=== PATIENT | female | born 1950 | race African-American/Black ===

== ENCOUNTER 2018-09-01 06:49 | Outpatient (CLI) | payer OTHER ==
[~2018-09-01] VITALS: Ht 167.6 cm; Wt 88.5 kg
[2018-09-01] VITALS (10 sets, daily range): BP systolic 119–172; BP diastolic 60–90
[~2018-09-01 06:49] MED LIST: AMLO10TA4 PO; AMLO10TA8 PO; ASPI-630 PO; ASPI81TA50 PO; CARV25TA2 PO; FURO40TA4 PO; GABA300C18 PO; GLIP5POW MC; GLIP5TAB22 PO; INSU100V13 SQ; LATA2.5D3 EACHEYE; NAPR220C4 PO; OMEP40CA5 PO
[2018-09-01 07:51] LABS: BASO % 1 % (0-3); EOS # 0.3 x10^3/uL (0.0-0.7); EOS % 5 % (0-3); HEMATOCRIT 33.8 % (36.0-47.0); HEMOGLOBIN 11.2 g/dL (12.0-15.5); LYMPH # 1.7 x10^3/uL (1.0-4.8); LYMPH % 29 % (24-48); MEAN CORPUSCULAR HEMOGLOBIN 28 pg (25-35); MEAN CORPUSCULAR HGB CONC 33 g/dL (31-37); MEAN CORPUSCULAR VOLUME 86 fL (79-100); MONO # 0.4 x10^3/uL (0.0-1.1); MONO % 7 % (0-9); NEUT # 3.5 x10^3uL (1.8-7.7); NEUT % 59 % (31-73); PLATELET COUNT 119 x10^3/uL (140-400); RED BLOOD COUNT 3.95 x10^6/uL (3.50-5.40); RED CELL DISTRIBUTION WIDTH 13.6 % (11.5-14.5); WHITE BLOOD COUNT 5.9 x10^3/uL (4.0-11.0)
[2018-09-01] MEDS ORDERED: CHOL4POW PO (08:00)
[2018-09-01] MEDS ORDERED: fentaNYL PF VIAL 100 MCG/2 ML VIAL ONE (08:00)
[2018-09-01] MEDS ORDERED: NALOXONE 0.4 MG/ML VIAL. ONE (08:00)
[2018-09-01] MEDS ORDERED: FLUMAZENIL 0.5 MG/5 ML VIAL. IV ONE (08:00)
[2018-09-01] MEDS ORDERED: MIDAZOLAM HCL/PF 2 MG/2 ML VIAL. ONE (08:00)
[2018-09-01] MEDS ORDERED: LIDOCAINE WITH 8.4% SOD BICARB 3 ML DISP.SYRIN. ONE (08:15)
[2018-09-01] MEDS ORDERED: LIDOCAINE WITH 8.4% SOD BICARB 3 ML DISP.SYRIN. IJ ONE (08:30)
[2018-09-01] MEDS ORDERED: fentaNYL PF VIAL 100 MCG/2 ML VIAL IV ONE (08:30)
[2018-09-01] MEDS ORDERED: MIDAZOLAM HCL/PF 2 MG/2 ML VIAL. IV ONE (08:30)
--- NOTE | 2018-09-01 10:57 | NUR ---
Discharge Note: RONALDO GARCIA Discharge instructions and discharge home medications reviewed with Patient and a copy given. All questions have been answered and understanding verbalized. Patient ate breakfast, tolerated well with no issues. The following instructions and handouts were given: Moderate sedation and bone marrow biopsy. Discontinued lines and drains: PIV left forearm, dressing clean dry intact. Patient discharged to home with daughter via in wheelchair to private vehicle.
--- NOTE | 2018-09-01 12:48 | RAD ---
CT-guided bone marrow biopsy. 09/01/2018 12:45 PM Indication: THROMBOCYTOPENIA Discussion: The risks and benefits of the procedure, including but not limited to, bleeding and infection were discussed patient. Informed consent was obtained. The patient was brought to the CT scanner and placed in the prone position. A timeout procedure was performed. 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 The overlying soft tissues were prepped and draped using maximum sterile barrier technique. 1% lidocaine without epinephrine was administered for local anesthesia. Under intermittent CT guidance, an OncControl needle was advanced into the bone marrow of the left iliac crest. 2 Aspirates and 1 core biopsy samples were obtained. Samples were delivered to pathology was present at the time of procedure. The needle was removed and manual pressure held to achieve hemostasis. No immediate complications were identified. The procedure was performed under conscious sedation including continuous cardiopulmonary monitoring via dedicated sedation nurse. Sedation time: 20 minutes Impression: Successful CT-guided bone marrow biopsy of the left iliac crest . PQRS Compliance Statement: One or more of the following individualized dose reduction techniques were utilized for this examination: 1. Automated exposure control 2. Adjustment of the mA and/or kV according to patient size 3. Use of iterative reconstruction technique
--- NOTE | 2018-09-10 18:05 | PATHOLOGY ---
[facility] Accession Number: [id number] . 01 Material submitted: . PART A: bone - BONE MARROW BIOPSY PART B: bone - BONE MARROW CLOT PART C: bone - BONE MARROW ASPIRATE SLIDES PART D: bone - PERIPHERAL BLOOD SMEAR PART E: bone - BONE MARROW FLOW . 01 Clinical history: . Pancytopenia . 02 Diagnosis: Peripheral smear: - Normocytic normochromic anemia, mild. - Thrombocytopenia, mild. . Bone marrow, aspirate smears, clot section, and core biopsy: - Normocellular to focally mildly hypercellular marrow showing trilineage hematopoiesis, mild erythroid hyperplasia, no significant dyspoiesis, and mild polyclonal plasmacytosis. - Mildly increased reticuloendothelial iron stores. (JPM:[facility] 09/10/2018) [facility]/09/10/2018 . 02 Comment: The peripheral smear shows mild normocytic normochromic anemia and mild thrombocytopenia. The bone marrow is normocellular to focally mildly hypercellular and shows trilineage hematopoiesis, mild erythroid hyperplasia, no significant dyspoiesis, mildly increased reticulo- endothelial iron stores and a mild polyclonal plasmacytosis. Flow cytometric analysis shows no immunophenotypic evidence of a lymphoproliferative disorder, acute leukemia, increase in blasts or plasma cell neoplasm. Cytogenetic analysis shows a normal female karyotype. The etiology of the cytopenias is not readily evident from the bone marrow examination. With a past medical history of treated hepatitis C, would consider liver disease and hypersplenism. Please correlate with clinical, laboratory and radiologic findings. (JPM:[facility] 09/10/2018) . Special stains performed: Iron stain on B1 and C1, reticulin stain on A1, immunoperoxidase for CD138 on A1 and B1, in situ hybridization for kappa and lambda light chain on A1 and in situ hybridization for kappa and lambda light chain on B1. . 02 Electronically signed: . Maciel Leslie MD, Pathologist NPI- [id number] . 01 Gross description: . A. Received in formalin labeled "Se Jeffrey BM BX," is a single needle core of razo bone measuring 2.1 cm in length and 0.3 cm in diameter. The specimen is submitted entirely in cassette A1, following decalcification. . B. Received in formalin labeled "Se Jeffrey BM Asp clot," is an aggregate of dark razo blood clot measuring 1.1 x 0.5 x 0.2 cm. The specimen is filtered and entirely submitted in cassette B1. ([facility]; 09/01/2018) TOB/TOB . 02 Microscopic: . Laboratory Data: The CBC results are dated 09/01/18. The WBC count is 5.9 K/CMM, and the automated WBC differential reveals 59% neutrophils, 29% lymphs, 7% monos, 5% eos, and 1% baso. The RBC count is 3.95 M/CMM, hemoglobin 11.2 G/DL, hematocrit 33.8%, MCV 86 FL, MCH 28 PG, MCHC 33 G/DL, and the RDW is 13.6%. The platelet count is 119 K/CMM. . Additional laboratory results are obtained from Dr. Qureshi' office. Serum protein electrophoresis shows no monoclonal spike. The serum folate is 15.5 NG/ML. Serum immunofixation shows no monoclonal proteins. The serum iron is 67 UG/DL, TIBC 308 UG/DL, saturation 22%, and ferritin 162 NG/ML. The methylmalonic acid is 182 NMOL/L. The vitamin B12 is is 448 PG/ML. . Peripheral Smear: The peripheral smear is reviewed. The WBC count is normal. The WBC differential reveals a predominance of segmented neutrophils, with a smaller population of lymphocytes and several monocytes and eosinophils noted. Neutrophils do not show dysplastic changes. There is no significant neutrophilic left shift. There are no circulating blasts. There is no leukoerythroblastic reaction. The lymphocyte population consists predominantly of small lymphocytes. Red blood cells predominantly appear normochromic and normocytic. Red blood cells show no significant anisopoikilocytosis. Platelets are mildly decreased and appear normal in morphology. . Aspirate Smears: Two Falcon's-stained and one iron-stained aspirate smears are examined. The smears contain multiple marrow particle. Overall, there appears to be a relative erythroid hyperplasia. The M/E ratio is approximately 1:1. Erythroid maturation predominantly appears normoblastic. There are no megaloblastic or overt dysplastic changes. Granulopoiesis qualitatively appears normal. There is no significant left shift or dysplastic changes. There is no increase of blasts. Megakaryocytes appear adequate in number and are of variable ploidy. There are foci of mild plasmacytosis showing between 5% and 10% plasma cells. Other areas have a smaller proportion of plasma cells. The plasma cells have a relatively mature appearance. Some appear enlarged and reactive. There are scattered admixed small lymphocytes with no significant increase of lymphocytes noted. There are no cells foreign to the marrow. The iron stain shows increased iron stores. No ringed sideroblasts are identified. . Bone Marrow Biopsy and Clot Section: Sections of the bone marrow biopsy reveal a segment of bone marrow showing focal aspiration artifact. The biopsy ranges between 20% and 40-50% cellular. The clot sections contain multiple marrow particles which range between 30% and 50% cellular. There is trilineage hematopoiesis with a mild erythroid hyperplasia. There are admixed granulocytic precursors present in varying stages of maturation. There is no apparent increase of blasts. Megakaryocytes appear adequate in number and are of variable ploidy. There are scattered admixed plasma cells which focally appear mildly increased. There are no solid nodules or areas of sheet-like replacement by plasma cells. The plasma cells have a relatively mature appearance. There are no abnormal lymphoid aggregates, granulomas, or cells foreign to the marrow. To confirm flow cytometric findings and characterize the target cells in a tissue architectural context, immunohistochemical stains for CD138 and in situ hybridization for kappa and lambda light chain are obtained on the biopsy and clot section and yield the following results: . CD138 (A1): Plasma cells positive scattered throughout the marrow and focally aligned along blood vessels; plasma cells comprise between 5% and 15% of nucleated marrow cells. Thorp and lambda АНДРЕЙ (A1): Plasma cells appear polyclonal. CD138 (B1): Plasma cells positive scattered throughout the marrow and focally aligned along blood vessels; plasma cells comprise between 5% and 15% of nucleated marrow cells. Thorp and lambda АНДРЕЙ (B1): Plasma cells appear polyclonal. . A reticulin stain obtained on the bone marrow biopsy shows no significant reticulin fibrosis. An iron stain obtained on the clot section shows focal mildly increased reticuloendothelial iron stores. No ringed sideroblasts are identified. . Special Studies: Bone marrow submitted for flow cytometric analysis has a viability of 99.8%. Granulocytes comprise 46.0% of total cells and show phenotypic evidence of maturation. Monocytes comprise 1.2% of total cells and show phenotypic evidence of maturation. CD45 dim, CD34 positive cells comprise 0.6% of total cells. Plasma cells comprise 0.1% of total cells and show unremarkable surface marker expression. Lymphocytes comprise 34.2% of total cells. T-cells comprise 93% of lymphoid cells and show a CD4/CD8 ratio of 1.9. NK-cells comprise 2% of lymphoid cells. Mature B-cells comprise 4% of lymphoid cells and are polyclonal with a kappa:lambda ratio of 1.4. CD45 negative cells comprise 15.5% of total cells and are comprised of erythroids and cell debris, with a small fraction of comingled myeloid, monocytic and lymphoid elements. . Bone marrow submitted for cytogenetic analysis shows a normal female karyotype in all cells analyzed. . (JPM:[facility]; 09/09/2018) . 02 Pathologist provided ICD-10: D64.9, D69.6, D75.89 . 02 CPT . 876218, 797265, 847038, 436946, 515013, 966517, 747978, 246122, M64436, V29835, D13881 Specimen Comment: A courtesy copy of this report has been sent to Specimen Comment: [phone], , . Specimen Comment: Report sent to ,DR LOW / DR WORRELL Performed at: 01 [facility] [address], [place] [id number] MD Kenny Ng MD Phone: [phone] Performed at: 02 [facility] [address], [place] [id number] MD Maciel Leslie MD Phone: [phone]
== END 2018-09-01 10:45 | disposition home or self-care (01) ==
LOC: INTRAD 06:49
PROVIDERS: ATTEND Internal Medicine Hematology & Oncology
DX: D69.6 Thrombocytopenia, unspecified (principal); D64.9 Anemia, unspecified
CPT/HCPCS: 36415; 38222; 77012; 85025; 85610; 88184; 88185; 88237; 88305; 88311; 88313; 88342; 88364; 88365; 99152; J2250; J3010

== ENCOUNTER 2019-01-03 18:40 | Inpatient (IN) | payer OTHER ==
[~2019-01-03] VITALS: Ht 170.2 cm; Wt 87.2 kg
[~2019-01-03 18:40] MED LIST changes: +CHOL4POW PO
[2019-01-03] MEDS ORDERED: IV NORMAL SALINE 1000ML BAG 1,000 ML IV ONE (19:00)
[2019-01-03 19:03] LABS: BASO # 0.1 x10^3/uL (0.0-0.2); BASO % 1 % (0-3); EOS # 0.2 x10^3/uL (0.0-0.7); EOS % 4 % (0-3); HEMATOCRIT 31.4 % (36.0-47.0); HEMOGLOBIN 10.6 g/dL (12.0-15.5); LYMPH # 1.5 x10^3/uL (1.0-4.8); LYMPH % 26 % (24-48); MEAN CORPUSCULAR HEMOGLOBIN 28 pg (25-35); MEAN CORPUSCULAR HGB CONC 34 g/dL (31-37); MEAN CORPUSCULAR VOLUME 85 fL (79-100); MONO # 0.5 x10^3/uL (0.0-1.1); MONO % 9 % (0-9); NEUT # 3.5 x10^3/uL (1.8-7.7); NEUT % 60 % (31-73); PLATELET COUNT 112 x10^3/uL (140-400); RED BLOOD COUNT 3.72 x10^6/uL (3.50-5.40); RED CELL DISTRIBUTION WIDTH 14.3 % (11.5-14.5); WHITE BLOOD COUNT 5.8 x10^3/uL (4.0-11.0)
[2019-01-03 19:13] LABS: PROTHROMBIN TIME PATIENT 13.6 SEC (11.7-14.0)
[2019-01-03 19:14] LABS: CALCIUM 9.2 mg/dL (8.5-10.1); CREATININE 1.3 mg/dL (0.6-1.0); GFR 49.1; POTASSIUM 3.6 mmol/L (3.5-5.1)
[2019-01-03 19:28] LABS: ALBUMIN 3.5 g/dL (3.4-5.0); ALBUMIN/GLOBULIN RATIO 0.7 (1.0-1.7); MAGNESIUM 2.2 mg/dL (1.8-2.4); TOTAL BILIRUBIN 0.3 mg/dL (0.2-1.0); TOTAL PROTEIN 8.2 g/dL (6.4-8.2)
--- NOTE | 2019-01-03 19:40 | RAD ---
Exam: CT head and cervical spine without contrast INDICATION: Altered mental status TECHNIQUE: Sequential axial images through the head and cervical spine were obtained without the administration of IV contrast. Comparisons: None FINDINGS: Head: No focal parenchymal lesion or hemorrhage is identified. There is no midline shift or sulcal effacement. No acute vascular territory infarction is identified. Valenzuela-white distinction is preserved. The ventricular system is within normal limits without compression hydrocephalus. The basal cisterns are well maintained. The visualized portions of the paranasal sinuses and mastoid air cells are well-pneumatized. No acute fractures. Cervical spine: Vertebral body heights are well-maintained. Straightening of the cervical spine which may be positional. Fracture through the cervical spine is not identified. Multilevel degenerative change at the cervical spine with degenerative disc disease greatest at C5-C6. Visualized paraspinal soft tissues are unremarkable. IMPRESSION: 1. No acute intracranial abnormality. 2. Negative CT C-spine for acute traumatic injury. Exposure: One or more of the following in the visualized dose reduction techniques were utilized for this examination: 1. Automated exposure control 2. Adjustment of the MA and/or KV according to patient size Use of iterative of reconstructive technique Electronically signed by: Dean Lindsey MD (01/03/2019 7:37 PM) [facility]
--- NOTE | 2019-01-03 20:26 | PHYS DOC ---
Past Medical History Past Medical History: CHF, Diabetes-Type II, Hypertension Past Surgical History: Cholecystectomy Alcohol Use: None Drug Use: None Adult General Chief Complaint Chief Complaint: ALTERED MENTAL STATUS HPI HPI Patient is a 68 year old [f__sex] who presents with [] Review of Systems Review of Systems Constitutional: Denies fever or chills [] Eyes: Denies change in visual acuity, redness, or eye pain [] HENT: Denies nasal congestion or sore throat [] Respiratory: Denies cough or shortness of breath [] Cardiovascular: No additional information not addressed in HPI [] GI: Denies abdominal pain, nausea, vomiting, bloody stools or diarrhea [] : Denies dysuria or hematuria [] Musculoskeletal: Denies back pain or joint pain [] Integument: Denies rash or skin lesions [] Neurologic: Denies headache, focal weakness or sensory changes [] Endocrine: Denies polyuria or polydipsia [] All other systems were reviewed and found to be within normal limits, except as documented in this note. Current Medications Current Medications Current Medications Medications (Trade) Dose Ordered Sig/Reginaldo Start Time Stop Time Status Last Admin Dose Admin Sodium Chloride 1,000 ml @ 1,000 mls/hr 1X ONCE 01/03/19 19:00 01/03/19 19:59 DC 01/03/19 20:09 1,000 MLS/HR Allergies Allergies Allergies Coded Allergies Type Severity Reaction Last Updated Verified No Known Drug Allergies 03/14/15 No Physical Exam Physical Exam Constitutional: Well developed, well nourished, no acute distress, non-toxic appearance. [] HENT: Normocephalic, atraumatic, bilateral external ears normal, oropharynx moist, no oral exudates, nose normal. [] Eyes: PERRLA, EOMI, conjunctiva normal, no discharge. [] Neck: Normal range of motion, no tenderness, supple, no stridor. [] Cardiovascular:Heart rate regular rhythm, no murmur [] Lungs & Thorax: Bilateral breath sounds clear to auscultation [] Abdomen: Bowel sounds normal, soft, no tenderness, no masses, no pulsatile masses. [] Skin: Warm, dry, no erythema, no rash. [] Back: No tenderness, no CVA tenderness. [] Extremities: No tenderness, no cyanosis, no clubbing, ROM intact, no edema. [] Neurologic: Alert and oriented X 3, normal motor function, normal sensory function, no focal deficits noted. [] Psychologic: Affect normal, judgement normal, mood normal. [] Current Patient Data Vital Signs Vital Signs Date Time Temp Pulse Resp B/P (MAP) Pulse Ox O2 Delivery O2 Flow Rate FiO2 01/03/19 18:40 93.3 64 12 172/84 (113) 100 Room Air 93.3 Lab Values Laboratory Tests Test 01/03/19 18:51 01/03/19 19:50 White Blood Count 5.8 x10^3/uL (4.0-11.0) Red Blood Count 3.72 x10^6/uL (3.50-5.40) Hemoglobin 10.6 g/dL (12.0-15.5) L Hematocrit 31.4 % (36.0-47.0) L Mean Corpuscular Volume 85 fL (79-100) Mean Corpuscular Hemoglobin 28 pg (25-35) Mean Corpuscular Hemoglobin Concent 34 g/dL (31-37) Red Cell Distribution Width 14.3 % (11.5-14.5) Platelet Count 112 x10^3/uL (140-400) L Neutrophils (%) (Auto) 60 % (31-73) Lymphocytes (%) (Auto) 26 % (24-48) Monocytes (%) (Auto) 9 % (0-9) Eosinophils (%) (Auto) 4 % (0-3) H Basophils (%) (Auto) 1 % (0-3) Neutrophils # (Auto) 3.5 x10^3/uL (1.8-7.7) Lymphocytes # (Auto) 1.5 x10^3/uL (1.0-4.8) Monocytes # (Auto) 0.5 x10^3/uL (0.0-1.1) Eosinophils # (Auto) 0.2 x10^3/uL (0.0-0.7) Basophils # (Auto) 0.1 x10^3/uL (0.0-0.2) Prothrombin Time 13.6 SEC (11.7-14.0) Prothrombin Time INR 1.1 (0.8-1.1) Activated Partial Thromboplast Time 27 SEC (24-38) Sodium Level 143 mmol/L (136-145) Potassium Level 3.6 mmol/L (3.5-5.1) Chloride Level 107 mmol/L (98-107) Carbon Dioxide Level 24 mmol/L (21-32) Anion Gap 12 (6-14) Blood Urea Nitrogen 38 mg/dL (7-20) H Creatinine 1.3 mg/dL (0.6-1.0) H Estimated GFR (Cockcroft-Gault) 49.1 BUN/Creatinine Ratio 29 (6-20) H Glucose Level 101 mg/dL (70-99) H Lactic Acid Level 0.6 mmol/L (0.4-2.0) Calcium Level 9.2 mg/dL (8.5-10.1) Magnesium Level 2.2 mg/dL (1.8-2.4) Total Bilirubin 0.3 mg/dL (0.2-1.0) Aspartate Amino Transferase (AST) 21 U/L (15-37) Alanine Aminotransferase (ALT) 12 U/L (14-59) L Alkaline Phosphatase 98 U/L (46-116) Creatine Kinase 121 U/L (26-192) Creatine Kinase MB (Mass) 1.0 ng/mL (0.0-3.6) Creatine Kinase MB Relative Index 0.8 % (0-4) Troponin I Quantitative < 0.017 ng/mL (0.000-0.055) OH-Xmk-Q-Type Natriuretic Peptide 122 pg/mL (0-124) Total Protein 8.2 g/dL (6.4-8.2) Albumin 3.5 g/dL (3.4-5.0) Albumin/Globulin Ratio 0.7 (1.0-1.7) L Ammonia 15 mcmol/L (11-34) Laboratory Tests 01/03/19 18:51 Laboratory Tests 01/03/19 18:51 EKG EKG @1841 NSR at 62bpm, NO ST elevation, QRS 134ms, QT/QTc 462/471ms Radiology/Procedures Radiology/Procedures PROCEDURE: CT HEAD AND CERVICAL SPINE WO Exam: CT head and cervical spine without contrast INDICATION: Altered mental status TECHNIQUE: Sequential axial images through the head and cervical spine were obtained without the administration of IV contrast. Comparisons: None FINDINGS: Head: No focal parenchymal lesion or hemorrhage is identified. There is no midline shift or sulcal effacement. No acute vascular territory infarction is identified. Valenzuela-white distinction is preserved. The ventricular system is within normal limits without compression hydrocephalus. The basal cisterns are well maintained. The visualized portions of the paranasal sinuses and mastoid air cells are well-pneumatized. No acute fractures. Cervical spine: Vertebral body heights are well-maintained. Straightening of the cervical spine which may be positional. Fracture through the cervical spine is not identified. Multilevel degenerative change at the cervical spine with degenerative disc disease greatest at C5-C6. Visualized paraspinal soft tissues are unremarkable. IMPRESSION: 1. No acute intracranial abnormality. 2. Negative CT C-spine for acute traumatic injury. Exposure: One or more of the following in the visualized dose reduction techniques were utilized for this examination: 1. Automated exposure control 2. Adjustment of the MA and/or KV according to patient size Use of iterative of reconstructive technique Electronically signed by: Dean Lindsey MD (01/03/2019 7:37 PM) [facility] [place] Course & Med Decision Making Course & Med Decision Making Pertinent Labs and Imaging studies reviewed. (See chart for details) [] Dragon Disclaimer Dragon Disclaimer This electronic medical record was generated, in whole or in part, using a voice recognition dictation system. Departure Departure Impression: Primary Impression: Acute renal insufficiency Additional Impressions: Hypoglycemia Hypothermia Disposition: ADMITTED INPATIENT Admitting Physician: HIMKhoi Condition: STABLE Referrals: DEVONTE WORRELL MD (PCP) Problem Qualifiers Additional Impressions: Hypothermia Encounter type: initial encounter Qualified Codes: T68.XXXA - Hypothermia, initial encounter REECE DELACRUZ DO Jan 03, 2019 20:26
[2019-01-03] MEDS ORDERED: DEXTROSE 50% 25 GM / 50ML DISP.SYRIN. IV ONE ×2 (20:32→20:45)
[2019-01-03] MEDS ORDERED: DEXTROSE 50% 25 GM / 50ML DISP.SYRIN. IV PRN (21:15)
[2019-01-03] MEDS ORDERED: ONDANSETRON PF 4 MG/2 ML VIAL. IV PRN (21:15)
[2019-01-03] MEDS ORDERED: IV DEXTROSE 5% 250 ML BAG. IV PRN (21:15)
[2019-01-03] MEDS ORDERED: IV DEXTROSE 5 %-0.45 % NACL 1,000 ML IV ONE (21:15)
--- NOTE | 2019-01-03 21:42 | RAD ---
AP portable chest radiograph 01/03/2019 Clinical History: History of shortness of breath. Altered mental status. An AP erect portable digital radiograph of the chest was obtained. Comparison study is dated 05/06/2017. The cardiac silhouette is mildly enlarged. The thoracic aorta is tortuous. No acute pulmonary infiltrate is seen. No pleural effusion or pneumothorax is noted. Degenerative changes are seen involving the thoracic spine and both shoulders. Impression: No acute abnormality is seen. Electronically signed by: Michael Hernandez MD (01/03/2019 9:39 PM) [facility]
--- NOTE | 2019-01-03 22:29 | PDOC1 ---
History and Physical Date of Admission Date of Admission DATE: 01/03/19 TIME: 22:26 Source Source: Chart review, Patient History of Present Illness History of Present Illness Ms. Jeffrey had felt well today, was up here visiting a family member, but then returned home and starting seeing spots, felt tired and lethargic and got confused. EMS was called by her, her blood sugar when they arrived was in 40;s, then 45 here she lives alone, is retired, she had a similar episode a year ago, Dm2 meds were not changed, Past Medical History Cardiovascular: No pertinent hx, Hyperlipidemia CENTRAL NERVOUS SYSTEM: Periperal neuropathy Infectious disease: No pertinent hx Renal/: No pertinent hx Endocrine: Diabetes Past Surgical History Past Surgical History: Appendectomy Social History Smoke: No ALCOHOL: none Drugs: None Current Problem List Problem List Problems Medical Problems: (1) Acute renal insufficiency Status: Acute (2) Hypoglycemia Status: Acute (3) Hypothermia Status: Acute Current Medications Current Medications Current Medications Sodium Chloride 1,000 ml @ 1,000 mls/hr 1X ONCE IV Last administered on 01/03/19at 20:09; Start 01/03/19 at 19:00; Stop 01/03/19 at 19:59; Status DC Dextrose (Dextrose 50%-Water Syringe) 25 gm STK-MED ONCE IV ; Start 01/03/19 at 20:32; Stop 01/03/19 at 20:33; Status DC Dextrose (Dextrose 50%-Water Syringe) 25 gm 1X ONCE IV Last administered on 01/03/19at 21:23; Start 01/03/19 at 20:45; Stop 01/03/19 at 20:46; Status DC Dextrose/Sodium Chloride 1,000 ml @ 100 mls/hr 1X ONCE IV Last administered on 01/03/19at 21:33; Start 01/03/19 at 21:15; Stop 01/04/19 at 07:14 Ondansetron HCl (Zofran) 4 mg PRN Q8HRS PRN IV NAUSEA/VOMITING; Start 01/03/19 at 21:15; Stop 01/04/19 at 21:14 Insulin Human Lispro (HumaLOG) 0-5 UNITS TIDWMEALS SQ ; Start 01/04/19 at 08:00 Dextrose (Dextrose 50%-Water Syringe) 12.5 gm PRN Q15MIN PRN IV SEE COMMENTS; Start 01/03/19 at 21:15 Dextrose 250 ml PRN Q15MIN PRN IV SEE COMMENTS; Start 01/03/19 at 21:15 Active Scripts Active Reported Cholestyramine Light Packet (Cholestyramine/Aspartame) 4 Gm Powd.pack 4 Gm PO BID Gabapentin (Gabapentin) 300 Mg Capsule 300 Mg PO DAILY Latanoprost 2.5 Ml Drops 1 Drop EACHEYE QHS Omeprazole 40 Mg Capsule.dr 1 Cap PO DAILY Glipizide Er (Glipizide) 5 Mg Tab.er.24 1 Tab PO DAILY Levemir (Insulin Detemir) 100 Unit/1 Ml Vial 15 Unit SQ DAILY Carvedilol 25 Mg Tablet 25 Mg PO BIDWMEALS Aspir-Low (Aspirin) 81 Mg Tablet.dr 81 Mg PO DAILY Norvasc (Amlodipine Besylate) 10 Mg Tablet 10 Mg PO DAILY Allergies Allergies: Coded Allergies: No Known Drug Allergies (Unverified , 03/14/15) ROS General: No: Chills, Night Sweats, Fatigue, Malaise, Appetite, Other PSYCHOLOGICAL ROS: YES: Concentration difficultie; No: Anxiety, Behavioral Disorder, Decreased libido, Depression, Disorientation, Hallucinations, Hostility, Irritablity, Memory difficulties, Mood Swings, Obsessive thoughts, Physical abuse, Sexual abuse, Sleep disturbances, Suicidal ideation, Other Eyes: No Blurry vision, No Decreased vision, No Double vision, No Dry eyes, No Excessive tearing, No Eye Pain, No Itchy Eyes, No Loss of vision, No Photophobia, No Scotomata, No Uses contacts, No Uses glasses, No Other HEENT: No: Heacaches, Visual Changes, Hearing change, Nasal congestion, Nasal discharge, Oral lesions, Sinus pain, Sore Throat, Epistaxis, Sneezing, Snoring, Tinnitus, Vertigo, Vocal changes, Other Respiratory: No: Cough, Hemoptysis, Orthopnea, Pleuritic Pain, Shortness of breath, SOB with excertion, Sputum Changes, Stridor, Tachypnea, Wheezing, Other Cardiovascular: No Chest Pain, No Palpitations, No Orthopnea, No Paroxysmal Noc. Dyspnea, No Edema, No Lt Headedness, No Other Gastrointestinal: Yes Nausea; No Vomiting, No Abdominal Pain, No Diarrhea, No Constipation, No Melena, No Hematochezia, No Other Genitourinary: No Dysuria, No Frequency, No Incontinence, No Hematuria, No Retention, No Discharge, No Urgency, No Pain, No Flank Pain, No Other, No , No , No , No , No , No , No Musculoskeletal: No Gait Disturbance, No Joint Pain, No Joint Stiffness, No Joint Swelling, No Muscle Pain, No Muscular Weakness, No Pain In:, No Swelling In:, No Other Neurological: Yes Confusion (today only), Yes Dizziness, Yes Impaired Coord/balance, Yes Visual Changes (today only); No Behavorial Changes, No Bowel/Bladder ControlChng, No Gait Disturbance, No Headaches, No Memory Loss, No Numbness/Tingling, No Seizures, No Speech Problems, No Tremors, No Weakness, No Other Skin: No Dry Skin, No Eczema, No Hair Changes, No Lumps, No Mole Changes, No Mottling, No Nail Changes, No Pruritus, No Rash, No Skin Lesion Changes, No Other, No Acne Physical Exam General: Alert, Oriented X3, Cooperative, No acute distress HEENT: PERRLA, Mucous membr. moist/pink Lungs: Clear to auscultation, Normal air movement Heart: S1S2, RRR, no thrills, no murmurs Abdomen: Normal bowel sounds, Soft Extremities: No clubbing, Normal pulses Skin: No rashes, No significant lesion Neuro: Normal gait, Normal speech, Normal tone, Cranial nerves 3-12 NL Psych/Mental Status: Mental status NL Vitals Vitals Vital Signs Date Time Temp Pulse Resp B/P (MAP) Pulse Ox O2 Delivery O2 Flow Rate FiO2 01/03/19 20:15 58 18 01/03/19 18:40 93.3 172/84 (113) 100 Room Air 93.3 Labs Labs Laboratory Tests Test 01/03/19 18:51 01/03/19 19:50 01/03/19 20:28 01/03/19 21:38 White Blood Count 5.8 x10^3/uL (4.0-11.0) Red Blood Count 3.72 x10^6/uL (3.50-5.40) Hemoglobin 10.6 g/dL (12.0-15.5) Hematocrit 31.4 % (36.0-47.0) Mean Corpuscular Volume 85 fL (79-100) Mean Corpuscular Hemoglobin 28 pg (25-35) Mean Corpuscular Hemoglobin Concent 34 g/dL (31-37) Red Cell Distribution Width 14.3 % (11.5-14.5) Platelet Count 112 x10^3/uL (140-400) Neutrophils (%) (Auto) 60 % (31-73) Lymphocytes (%) (Auto) 26 % (24-48) Monocytes (%) (Auto) 9 % (0-9) Eosinophils (%) (Auto) 4 % (0-3) Basophils (%) (Auto) 1 % (0-3) Neutrophils # (Auto) 3.5 x10^3/uL (1.8-7.7) Lymphocytes # (Auto) 1.5 x10^3/uL (1.0-4.8) Monocytes # (Auto) 0.5 x10^3/uL (0.0-1.1) Eosinophils # (Auto) 0.2 x10^3/uL (0.0-0.7) Basophils # (Auto) 0.1 x10^3/uL (0.0-0.2) Prothrombin Time 13.6 SEC (11.7-14.0) Prothromb Time International Ratio 1.1 (0.8-1.1) Activated Partial Thromboplast Time 27 SEC (24-38) Sodium Level 143 mmol/L (136-145) Potassium Level 3.6 mmol/L (3.5-5.1) Chloride Level 107 mmol/L (98-107) Carbon Dioxide Level 24 mmol/L (21-32) Anion Gap 12 (6-14) Blood Urea Nitrogen 38 mg/dL (7-20) Creatinine 1.3 mg/dL (0.6-1.0) Estimated GFR (Cockcroft-Gault) 49.1 BUN/Creatinine Ratio 29 (6-20) Glucose Level 101 mg/dL (70-99) Lactic Acid Level 0.6 mmol/L (0.4-2.0) Calcium Level 9.2 mg/dL (8.5-10.1) Magnesium Level 2.2 mg/dL (1.8-2.4) Total Bilirubin 0.3 mg/dL (0.2-1.0) Aspartate Amino Transf (AST/SGOT) 21 U/L (15-37) Alanine Aminotransferase (ALT/SGPT) 12 U/L (14-59) Alkaline Phosphatase 98 U/L (46-116) Creatine Kinase 121 U/L (26-192) Creatine Kinase MB (Mass) 1.0 ng/mL (0.0-3.6) Creatine Kinase MB Relative Index 0.8 % (0-4) Troponin I Quantitative < 0.017 ng/mL (0.000-0.055) FO-Wjj-N-Type Natriuretic Peptide 122 pg/mL (0-124) Total Protein 8.2 g/dL (6.4-8.2) Albumin 3.5 g/dL (3.4-5.0) Albumin/Globulin Ratio 0.7 (1.0-1.7) Ammonia 15 mcmol/L (11-34) Glucose (Fingerstick) 46 mg/dL (70-99) 210 mg/dL (70-99) Laboratory Tests Test 01/03/19 18:51 01/03/19 19:50 01/03/19 20:28 01/03/19 21:38 White Blood Count 5.8 x10^3/uL (4.0-11.0) Red Blood Count 3.72 x10^6/uL (3.50-5.40) Hemoglobin 10.6 g/dL (12.0-15.5) Hematocrit 31.4 % (36.0-47.0) Mean Corpuscular Volume 85 fL (79-100) Mean Corpuscular Hemoglobin 28 pg (25-35) Mean Corpuscular Hemoglobin Concent 34 g/dL (31-37) Red Cell Distribution Width 14.3 % (11.5-14.5) Platelet Count 112 x10^3/uL (140-400) Neutrophils (%) (Auto) 60 % (31-73) Lymphocytes (%) (Auto) 26 % (24-48) Monocytes (%) (Auto) 9 % (0-9) Eosinophils (%) (Auto) 4 % (0-3) Basophils (%) (Auto) 1 % (0-3) Neutrophils # (Auto) 3.5 x10^3/uL (1.8-7.7) Lymphocytes # (Auto) 1.5 x10^3/uL (1.0-4.8) Monocytes # (Auto) 0.5 x10^3/uL (0.0-1.1) Eosinophils # (Auto) 0.2 x10^3/uL (0.0-0.7) Basophils # (Auto) 0.1 x10^3/uL (0.0-0.2) Prothrombin Time 13.6 SEC (11.7-14.0) Prothromb Time International Ratio 1.1 (0.8-1.1) Activated Partial Thromboplast Time 27 SEC (24-38) Sodium Level 143 mmol/L (136-145) Potassium Level 3.6 mmol/L (3.5-5.1) Chloride Level 107 mmol/L (98-107) Carbon Dioxide Level 24 mmol/L (21-32) Anion Gap 12 (6-14) Blood Urea Nitrogen 38 mg/dL (7-20) Creatinine 1.3 mg/dL (0.6-1.0) Estimated GFR (Cockcroft-Gault) 49.1 BUN/Creatinine Ratio 29 (6-20) Glucose Level 101 mg/dL (70-99) Lactic Acid Level 0.6 mmol/L (0.4-2.0) Calcium Level 9.2 mg/dL (8.5-10.1) Magnesium Level 2.2 mg/dL (1.8-2.4) Total Bilirubin 0.3 mg/dL (0.2-1.0) Aspartate Amino Transf (AST/SGOT) 21 U/L (15-37) Alanine Aminotransferase (ALT/SGPT) 12 U/L (14-59) Alkaline Phosphatase 98 U/L (46-116) Creatine Kinase 121 U/L (26-192) Creatine Kinase MB (Mass) 1.0 ng/mL (0.0-3.6) Creatine Kinase MB Relative Index 0.8 % (0-4) Troponin I Quantitative < 0.017 ng/mL (0.000-0.055) EK-Wgp-D-Type Natriuretic Peptide 122 pg/mL (0-124) Total Protein 8.2 g/dL (6.4-8.2) Albumin 3.5 g/dL (3.4-5.0) Albumin/Globulin Ratio 0.7 (1.0-1.7) Ammonia 15 mcmol/L (11-34) Glucose (Fingerstick) 46 mg/dL (70-99) 210 mg/dL (70-99) VTE Prophylaxis Ordered VTE Prophylaxis Devices: Yes VTE Pharmacological Prophylaxi: Yes Assessment/Plan Assessment/Plan symptomatic hypoglycemia in Dm2, on glypizide and insulin ' acute metabolic encephalopathy acute vasomotor nephropathy, dry htn admit BONNIE GRAFF MD Jan 03, 2019 22:29
[2019-01-03] MEDS ORDERED: ENOXAPARIN 40 MG/0.4 ML SYRINGE. SQ SCH (22:30)
[2019-01-03] MEDS ORDERED: LATANOPROST 0.005% OPHTH SOLUTION 2.5ML BOTTLE. OU SCH (23:00)
--- NOTE | 2019-01-04 00:34 | NUR ---
The patient, RONALDO GARCIA, 68 y/o, F admitted by BONNIE GRAFF MD, was given written information regarding hospital policies, unit procedures and contact persons. Valuables were checked and left with patient.
[2019-01-04 00:53] VITALS: BP 137/77
[2019-01-04 03:31] VITALS: BP 141/76
[2019-01-04 04:39] LABS: BASO % 0 % (0-3); EOS % 1 % (0-3); HEMATOCRIT 30.1 % (36.0-47.0); HEMOGLOBIN 10.2 g/dL (12.0-15.5); LYMPH # 1.2 x10^3/uL (1.0-4.8); LYMPH % 20 % (24-48); MEAN CORPUSCULAR HEMOGLOBIN 29 pg (25-35); MEAN CORPUSCULAR HGB CONC 34 g/dL (31-37); MEAN CORPUSCULAR VOLUME 85 fL (79-100); MONO # 0.3 x10^3/uL (0.0-1.1); MONO % 6 % (0-9); NEUT # 4.5 x10^3/uL (1.8-7.7); NEUT % 74 % (31-73); PLATELET COUNT 116 x10^3/uL (140-400); RED BLOOD COUNT 3.55 x10^6/uL (3.50-5.40); RED CELL DISTRIBUTION WIDTH 14.3 % (11.5-14.5); WHITE BLOOD COUNT 6.1 x10^3/uL (4.0-11.0)
[2019-01-04 05:10] LABS: ALBUMIN/GLOBULIN RATIO 0.7 (1.0-1.7); CALCIUM 8.9 mg/dL (8.5-10.1); CREATININE 1.2 mg/dL (0.6-1.0); GFR 53.9; POTASSIUM 3.8 mmol/L (3.5-5.1); TOTAL BILIRUBIN 0.3 mg/dL (0.2-1.0); TOTAL PROTEIN 7.4 g/dL (6.4-8.2)
--- NOTE | 2019-01-04 05:27 | EKG ---
[facility] [address] [place] [address] Test Date: 2019-01-03 Test Time: 18:41:55 Pat Name: RONALDO GARCIA Department: Room: Gender: F School Librarian: : 1950 Requested By: REECE DELACRUZ Order Number: [id number] Reading MD: Measurements Intervals [place] Rate: 62 P: MA: QRS: -24 QRSD: 134 T: 67 QT: 462 QTc: 471 Interpretive Statements ACCELERATED JUNCTIONAL RHYTHM LEFTWARD AXIS NON SPECIFIC INTRAVENTRICULAR BLOCK ABNORMAL ECG RI6.01 Unconfirmed report No previous ECG available for comparison
[2019-01-04] MEDS ORDERED: PANTOPRAZOLE 40 MG TABLET.DR. PO SCH (07:30)
[2019-01-04 07:45] VITALS: BP 164/96
[2019-01-04] MEDS: INSULIN LISPRO 300 UNITS/3 ML VIAL. SQ SCH ×2 (08:00→12:00)
[2019-01-04] MEDS ORDERED: CARVEDILOL 12.5 MG TABLET. PO SCH (08:00)
[2019-01-04] MEDS ORDERED: ASPIRIN ENTERIC COATED 81 MG TABLET.DR. PO SCH (08:00)
[2019-01-04] MEDS ORDERED: amLODIPine BESYLATE 10 MG TABLET PO SCH (09:00)
[2019-01-04] MEDS ORDERED: GABAPENTIN 300 MG CAPSULE. PO SCH (09:00)
[2019-01-04] MEDS ORDERED: IV NORMAL SALINE 1000ML BAG 1,000 ML IV ONE (11:15)
[2019-01-04] MEDS ORDERED: INSU100V13 SQ (11:22)
[2019-01-04 11:30] VITALS: BP 134/74
[2019-01-04 15:49] VITALS: BP 154/94
--- NOTE | 2019-01-04 16:27 | NUR ---
Discharge Note: ALINA GARCIA [facility] Discharge instructions and discharge home medications reviewed with Patient and a copy given. All questions have been answered and understanding verbalized. The following instructions and handouts were given: F/U with PCP within one week. Discontinued lines and drains: Peripheral IV intact. Patient discharged to Home or Self Care with Family Member via Wheelchair.
[2019-01-05 02:13] LABS: HEMOGLOBIN A1C 8.1 % (4.8-5.6)
== END 2019-01-04 16:30 | disposition home or self-care (01) | DRG 682 ==
LOC: ER 18:40 → 6 SOUTH 20:57
PROVIDERS: ADMIT Internal Medicine; ATTEND Internal Medicine
DX: N17.0 Acute kidney failure with tubular necrosis (principal); G93.41 Metabolic encephalopathy; E11.649 Type 2 diabetes mellitus with hypoglycemia without coma; I11.0 Hypertensive heart disease with heart failure; I50.9 Heart failure, unspecified; Z60.2 Problems related to living alone; E11.42 Type 2 diabetes mellitus with diabetic polyneuropathy; Z90.49 Acquired absence of other specified parts of digestive tract
CPT/HCPCS: 36415; 70450; 71045; 72125; 80053; 82140; 82553; 82962; 83036; 83605; 83735; 83880; 84484; 85025; 85610; 85730; 87040; 93005; J1650; J1815; J7030; J7042; 99285-25; G0378

== ENCOUNTER → 2020-05-21 | Outpatient (CLI) | payer MEDICARE ==
[~2020-05-21] MED LIST changes: +AMLO-187 PO; -AMLO10TA8 PO; +OMEP40CA45 PO; -OMEP40CA5 PO
--- NOTE | 2020-05-21 15:42 | CARD ---
MR#: [id number] Date of Study: 05/21/2020 Ordering Physician: JONG OLMSTEAD, Referring Physician: JONG OLMSTEAD, Tech: Lorena Flores RUST APPROVED REPORT EXAM: Two-dimensional and M-mode echocardiogram with Doppler and color Doppler. Other Information Quality : GoodHR: 62bpm Rhythm : NSR INDICATION Hypertension/HCVD RISK FACTORS Hypertension 2D DIMENSIONS RVDd2.9 (2.9-3.5cm)Left Atrium(2D)4.7 (1.6-4.0cm) IVSd1.3 (0.7-1.1cm)Aortic Root(2D)3.4 (2.0-3.7cm) LVDd4.9 (3.9-5.9cm)LVOT Diameter2.4 (1.8-2.4cm) PWd1.3 (0.7-1.1cm)LVDs3.1 (2.5-4.0cm) FS (%) 37.0 %SV74.8 ml Aortic Valve AoV Peak Cristofer.127.6cm/sAoV VTI29.8cm AO Peak GR.6.5mmHgLVOT Peak Cristofer.99.6cm/s AO Mean GR.3mmHgAVA (VMAX)3.49cm2 Mitral Valve MV E Laeeafwb19.6cm/sMV DECEL FTMV274ld MV A Ucournjv69.5cm/sE/A Ratio0.6 Pulmonary Valve PV Peak Rbofjnep271.7cm/s Tricuspid Valve TR P. Vfssxhzz094dg/sTR Peak Gr.26mmHg Pulmonary Vein S1 Yedelmuc17.8cm/sD2 Odofxwzt69.6cm/s PVa nfvcvisr152fftr LEFT VENTRICLE The left ventricle is normal size. There is borderline concentric left ventricular hypertrophy. The l eft ventricular systolic function is normal and the ejection fraction is within normal range. Left ve ntricular ejection fraction of 55 to 60% There is normal LV segmental wall motion. Transmitral Dopple r flow pattern is abnormal. RIGHT VENTRICLE The right ventricle is normal size. There is normal right ventricular wall thickness. The right ventr icular systolic function is normal. ATRIA The left atrium size is normal. The right atrium size is normal. The interatrial septum is intact wit h no evidence for an atrial septal defect or patent foramen ovale as noted on 2-D or Doppler imaging. AORTIC VALVE The aortic valve is normal in structure and function. Doppler and Color Flow revealed no significant aortic regurgitation. There is no significant aortic valvular stenosis. MITRAL VALVE The mitral valve is normal in structure and function. There is no evidence of mitral valve prolapse. There is no mitral valve stenosis. Doppler and Color Flow revealed trace mitral valve regurgitation. TRICUSPID VALVE The tricuspid valve is normal in structure and function. Doppler and Color Flow revealed mild tricusp id regurgitation. Estimated PAP 30 mmHg. There is no tricuspid valve stenosis. PULMONIC VALVE The pulmonary valve is normal in structure and function. Doppler and Color Flow revealed no pulmonic valvular regurgitation. GREAT VESSELS The aortic root is normal in size. The ascending aorta is normal in size. The IVC is normal in size a nd collapses >50% with inspiration. PERICARDIAL EFFUSION There is no evidence of significant pericardial effusion. Critical Notification Critical Value: No <Conclusion> The left ventricle is normal size. The left ventricular systolic function is normal and the ejection fraction is within normal range. Left ventricular ejection fraction of 55 to 60% There is borderline concentric left ventricular hypertrophy. There is no significant aortic valvular stenosis. Doppler and Color Flow revealed no significant aortic regurgitation. Doppler and Color Flow revealed trace mitral valve regurgitation. Doppler and Color Flow revealed mild tricuspid regurgitation. Estimated PAP 30 mmHg. Signed by : Jong Olmstead MD Electronically Approved : 05/21/2020 15:42:00
== END ==
LOC: ECHO 12:46
PROVIDERS: ATTEND Internal Medicine Cardiovascular Disease
DX: I07.1 Rheumatic tricuspid insufficiency (principal); I42.9 Cardiomyopathy, unspecified
CPT/HCPCS: 93306

== ENCOUNTER 2021-08-10 16:34 | Inpatient (IN) | payer MEDICARE ==
[~2021-08-10] VITALS: Ht 167.6 cm; Wt 82.3 kg
[~2021-08-10 16:34] MED LIST changes: -CHOL4POW PO; +CHOL4POW31 PO; -OMEP40CA45 PO; +OMEP40CA7 PO
[2021-08-10] MEDS ORDERED: IV NORMAL SALINE 1000ML BAG 1,000 ML IV SCH (17:00)
--- NOTE | 2021-08-10 17:35 | RAD ---
INDICATION: Reason: soa, cough / Spl. Instructions: / History: COMPARISON: December 2018 FINDINGS: Single view of chest obtained. Cardiac mediastinal silhouette is similar to prior. Degenerative changes of the spine. Patchy opacity right chest base with some elevation right hemidiaphragm IMPRESSION: * Focal opacity at right chest base could be atelectasis, infiltrate or aspiration. Follow-up could be obtained to ensure this appropriately resolves to exclude a persistent nodule in the area. Electronically signed by: Vipul John MD (08/10/2021 5:32 PM) [id number]
[2021-08-10 17:39] LABS: BASO % 0 % (0-3); EOS % 0 % (0-3); HEMATOCRIT 34.1 % (36.0-47.0); HEMOGLOBIN 10.9 g/dL (12.0-15.5); LYMPH # 0.7 x10^3/uL (1.0-4.8); LYMPH % 13 % (24-48); MEAN CORPUSCULAR HEMOGLOBIN 27 pg (25-35); MEAN CORPUSCULAR HGB CONC 32 g/dL (31-37); MEAN CORPUSCULAR VOLUME 85 fL (79-100); MONO # 0.7 x10^3/uL (0.0-1.1); MONO % 14 % (0-9); NEUT % 74 % (31-73); PLATELET COUNT 108 x10^3/uL (140-400); RED BLOOD COUNT 4.03 x10^6/uL (3.50-5.40); RED CELL DISTRIBUTION WIDTH 14.3 % (11.5-14.5); WHITE BLOOD COUNT 5.5 x10^3/uL (4.0-11.0)
[2021-08-10 17:49] LABS: CREATININE 2.1 mg/dL (0.6-1.0); POTASSIUM 4.1 mmol/L (3.5-5.1)
[2021-08-10 17:54] LABS: INFLUENZA A PATIENT NEGATIVE (NEGATIVE); INFLUENZA B PATIENT NEGATIVE (NEGATIVE)
[2021-08-10 17:55] LABS: ALBUMIN 3.4 g/dL (3.4-5.0); ALBUMIN/GLOBULIN RATIO 0.7 (1.0-1.7); TOTAL PROTEIN 8.6 g/dL (6.4-8.2)
--- NOTE | 2021-08-10 17:58 | PHYS DOC ---
Past Medical History Past Medical History: CHF, Diabetes-Type II, Hypertension Past Surgical History: No Surgical History Smoking Status: Never Smoker Alcohol Use: None Drug Use: None General Adult EDM: Chief Complaint: HYPERGLYCEMIA HPI: HPI: Patient is a 71 year old female who presents with Thursday began having a cough, producing green sputum, generalized weakness and shortness of breath. Upon arrival patient is 82% on room air. She is placed on 4 L of oxygen and she is satting in the 90s. She is a history of CHF, diabetes, hypertension. Patient denies abdominal pain, nausea, vomiting, diarrhea, chest pain, dizziness, syncope, headache, fever, chills, focal weakness, numbness or t ingling. Review of Systems: Review of Systems: Constitutional: Denies fever or chills. [] Eyes: Denies change in visual acuity. [] HENT: Denies nasal congestion or sore throat. [] Respiratory: +cough or +shortness of breath. [] Cardiovascular: Denies chest pain or edema. [] GI: Denies abdominal pain, nausea, vomiting, bloody stools or diarrhea. [] : Denies dysuria. [] Musculoskeletal: Denies back pain or joint pain. +Generalized weakness] Integument: Denies rash. [] Neurologic: Denies headache, focal weakness or sensory changes. [] Endocrine: Denies polyuria or polydipsia. [] Lymphatic: Denies swollen glands. [] Psychiatric: Denies depression or anxiety. [] Heart Score: C/O Chest Pain: No Risk Factors: Risk Factors: DM, Current or recent (<one month) smoker, HTN, HLP, family history of CAD, obesity. Risk Scores: Score 0 - 3: 2.5% MACE over next 6 weeks - Discharge Home Score 4 - 6: 20.3% MACE over next 6 weeks - Admit for Clinical Observation Score 7 - 10: 72.7% MACE over next 6 weeks - Early Invasive Strategies Current Medications: Current Medications Medications (Trade) Dose Ordered Sig/Reginaldo Start Time Stop Time Status Last Admin Dose Admin Sodium Chloride 1,000 ml @ 1,000 mls/hr Q1H 08/10/21 17:00 08/10/21 17:59 08/10/21 17:42 1,000 MLS/HR Allergies: Allergies: Allergies Coded Allergies Type Severity Reaction Last Updated Verified No Known Drug Allergies 03/14/15 No Physical Exam: PE: Constitutional: Well developed, well nourished, no acute distress, non-toxic appearance. [] HENT: Normocephalic, atraumatic, bilateral external ears normal, oropharynx m oist, no oral exudates, nose normal. [] Eyes: PERRLA, EOMI, conjunctiva normal, no discharge. [] Neck: Normal range of motion, no tenderness, supple, no stridor. [] Cardiovascular:Heart rate regular rhythm, no murmur [] Lungs & Thorax: Bilateral upper breath sounds clear and lower diminished to auscultation [] Abdomen: Bowel sounds normal, soft, no tenderness, no masses, no pulsatile patrick s. [] Skin: Warm, dry, no erythema, no rash. [] Back: No tenderness, no CVA tenderness. [] Extremities: No tenderness, no cyanosis, no clubbing, ROM intact, no edema. [] Neurologic: Alert and oriented X 3, normal motor function, normal sensory function, no focal deficits noted. [] Psychologic: Affect normal, judgement normal, mood normal. [] Current Patient Data: Labs: Laboratory Tests Test 08/10/21 17:05 08/10/21 17:30 Glucose (Fingerstick) 495 mg/dL (70-99) H White Blood Count 5.5 x10^3/uL (4.0-11.0) Red Blood Count 4.03 x10^6/uL (3.50-5.40) Hemoglobin 10.9 g/dL (12.0-15.5) L Hematocrit 34.1 % (36.0-47.0) L Mean Corpuscular Volume 85 fL (79-100) Mean Corpuscular Hemoglobin 27 pg (25-35) Mean Corpuscular Hemoglobin Concent 32 g/dL (31-37) Red Cell Distribution Width 14.3 % (11.5-14.5) Platelet Count 108 x10^3/uL (140-400) L Neutrophils (%) (Auto) 74 % (31-73) H Lymphocytes (%) (Auto) 13 % (24-48) L Monocytes (%) (Auto) 14 % (0-9) H Eosinophils (%) (Auto) 0 % (0-3) Basophils (%) (Auto) 0 % (0-3) Neutrophils # (Auto) 4.0 x10^3/uL (1.8-7.7) Lymphocytes # (Auto) 0.7 x10^3/uL (1.0-4.8) L Monocytes # (Auto) 0.7 x10^3/uL (0.0-1.1) Eosinophils # (Auto) 0.0 x10^3/uL (0.0-0.7) Basophils # (Auto) 0.0 x10^3/uL (0.0-0.2) Laboratory Tests 08/10/21 17:30 Vital Signs: Vital Signs Date Time Temp Pulse Resp B/P (MAP) Pulse Ox O2 Delivery O2 Flow Rate FiO2 08/10/21 17:44 94 Nasal Cannula 3.0 08/10/21 17:14 99.0 69 20 134/62 (86) 99.0 EKG: EK and read by Dr. iL as a sinus rhythm with a left bundle branch block but no STEMI Radiology/Procedures: Radiology/Procedures: [] Impression: [facility] [address] [place] [address] IMAGING REPORT Signed PATIENT: RONALDO GARCIA ACCOUNT: [id number] : 1950 LOCATION: ER AGE: 71 SEX: F EXAM STATUS: REG ER ORD. PHYSICIAN: MERA YIN APRN REASON: soa, cough PROCEDURE: PORTABLE CHEST 1V INDICATION: Reason: soa, cough / Spl. Instructions: / History: COMPARISON: December 2018 FINDINGS: Single view of chest obtained. Cardiac mediastinal silhouette is similar to prior. Degenerative changes of the spine. Patchy opacity right chest base with some elevation right hemidiaphragm IMPRESSION: * Focal opacity at right chest base could be atelectasis, infiltrate or aspiration. Follow-up could be obtained to ensure this appropriately resolves to exclude a persistent nodule in the area. Electronically signed by: Piter Singletary MD (08/10/2021 5:32 PM) Secret [id number] DICTATED and SIGNED BY: PITER SINGLETARY MD DATE: 08/10/211730 Course & Med Decision Making: Course & Med Decision Making Pertinent Labs and Imaging studies reviewed. (See chart for details) COVID-19 CRITERIA: The patient was evaluated during the global COVID-19 pandemic, and that diagnosis was suspected/considered upon their initial presentation. Their evaluation, treatment and testing was consistent with current guidelines for patients who present with complaints or symptoms that may be related to COVID-19. See HPI. Alert and oriented x4. Ambulatory but slow with a steady gait. Skin pink warm and dry. Lungs are clear in upper lobes but diminished in lower lob es. Kidney function is elevated. Lactic acid is 2.3. Patient has gotten a liter of normal saline. 10 units of regular insulin. Azithromycin and Rocephin IV. Patient is admitted to the hospitalist. Patient is currently on 5 L of oxygen. [] Dragon Disclaimer: Dragon Disclaimer: This electronic medical record was generated, in whole or in part, using a voice recognition dictation system. Departure Departure Impression: Primary Impression: Pneumonia Qualified Codes: J18.9 - Pneumonia, unspecified organism Additional Impressions: Hypoxia Hyperglycemia Disposition: ADMITTED INPATIENT Admitting Physician: AZALEA Condition: STABLE Referrals: DEVONTE WORRELL MD (PCP) MERA YIN APRN Aug 10, 2021 17:58
[2021-08-10] MEDS ORDERED: IPRATRPIUM/ALBUTEROL 0.5/2.5MG 3 ML NEBU. NEB ONE (18:00)
[2021-08-10] MEDS ORDERED: cefTRIAXone IV Push 1 GM VIAL. IVP ONE (18:00)
[2021-08-10] MEDS ORDERED: AZITHROMYCIN 500 MG in IV NORMAL SALINE 250ML 250 ML IV ONE (18:00)
[2021-08-10] MEDS ORDERED: INSULIN REGULAR 100 UNIT/ML 3ML VIAL. IV ONE (18:15)
[2021-08-10] MEDS ORDERED: IV NORMAL SALINE 500ML BAG 500 ML IV ONE (18:30)
[2021-08-10 18:33] LABS: BASE EXCESS COOX 2 mmol/L (-3-3); HCO3 COOX 26 mmol/L (21-28); METHEMOGLOBIN 0.5 % (0.0-1.9); OXYHEMOGLOBIN 87.5 %; PCO2 COOX 40 mmHg (35-46); PO2 COOX 55 mmHg (65-108); SAT O2 COOX 88 % (92-99)
[2021-08-10 21:31] VITALS: BP 140/68
[2021-08-11 03:04] VITALS: BP 163/65
[2021-08-11 07:00] VITALS: BP 169/80
--- NOTE | 2021-08-11 07:24 | PDOC1 ---
History and Physical Date of Admission Date of Admission DATE: 08/11/21 TIME: 07:16 Identification/Chief Complaint Chief Complaint Cough Source Source: Patient History of Present Illness History of Present Illness Ms Jeffrey is a 71 yo female w/ PMHx CHF, DM2, HTN who presents to ED c/o cough, producing green sputum, generalized weakness and shortness of breath that all initiated on 08/07/2021. Upon arrival patient is 82% on room air. She is placed on 4 L of oxygen and she is satting in the 90s. She has been progressively weaker and had a decreased appetite with cough that is progressively more productive to the point where she could not even get out of bed. She has had no recent travel or sick contacts fully vaccinating is COVID-19. No respiratory history. No vomiting, diarrhea, chest pain, dizziness, syncope, headache, focal weakness, numbness or tingling. Chest radiograph on my interpretation appears to have right lower lobar consolidation. Labs with WBC 5.5, Hb 10.9, platelets 108, NA 137, K4.1, BUN 30, CR 2.1, glucose 479, calcium 900 bilirubin 1, AST 19, ALT 16, alk phos 59, albumin 3.4, lactic acid 2.3, Acetone Negative, Rapid Influenza Negative, Rapid COVID-19 Negative ABG on 4 L/min O2 7.44/40/55 Admit for further care Past Medical History Cardiovascular: No pertinent hx, Hyperlipidemia CENTRAL NERVOUS SYSTEM: Periperal neuropathy Infectious disease: No pertinent hx Renal/: No pertinent hx Endocrine: Diabetes Past Surgical History Past Surgical History: Appendectomy Family History Family History: Diabetes, Hypertension Social History Smoke: No ALCOHOL: none Drugs: None Current Problem List Problem List Problems Medical Problems: (1) Hyperglycemia Status: Acute (2) Hypoxia Status: Acute (3) Pneumonia Status: Acute Current Medications Current Medications Current Medications Sodium Chloride 1,000 ml @ 1,000 mls/hr Q1H IV Last administered on 08/10/21at 17:42; Start 08/10/21 at 17:00; Stop 08/10/21 at 17:59; Status DC Azithromycin 500 mg/Sodium Chloride 250 ml @ 250 mls/hr 1X ONCE IV Last administered on 08/10/21at 18:36; Start 08/10/21 at 18:00; Stop 08/10/21 at 18:59; Status DC Ceftriaxone Sodium (Rocephin) 1 gm 1X ONCE IVP Last administered on 08/10/21at 18:45; Start 08/10/21 at 18:00; Stop 08/10/21 at 18:01; Status DC Albuterol/ Ipratropium (Duoneb) 3 ml 1X ONCE NEB Last administered on 08/10/21at 17:45; Start 08/10/21 at 18:00; Stop 08/10/21 at 18:01; Status DC Insulin Human Regular (HumuLIN R VIAL) 10 unit 1X ONCE IV Last administered on 08/10/21at 18:15; Start 08/10/21 at 18:15; Stop 08/10/21 at 18:16; Status DC Sodium Chloride 500 ml @ 500 mls/hr 1X ONCE IV Last administered on 08/10/21at 18:48; Start 08/10/21 at 18:30; Stop 08/10/21 at 19:29; Status DC Active Scripts Active Levemir (Insulin Detemir) 100 Unit/1 Ml Vial 25 Unit SQ DAILY 30 Days Reported Cholestyramine Light Packet (Cholestyramine/Aspartame) 4 Gm Powd.pack 4 Gm PO BID Gabapentin (Gabapentin) 300 Mg Capsule 300 Mg PO DAILY Latanoprost 2.5 Ml Drops 1 Drop EACHEYE QHS Omeprazole 40 Mg Capsule. 1 Cap PO DAILY Carvedilol 25 Mg Tablet 25 Mg PO BIDWMEALS Aspir-Low (Aspirin) 81 Mg Tablet. 81 Mg PO DAILY Norvasc (Amlodipine Besylate) 10 Mg Tablet 10 Mg PO DAILY Allergies Allergies: Coded Allergies: No Known Drug Allergies (Unverified , 03/14/15) ROS General: YES: Fatigue, Malaise, Appetite; No: Chills, Night Sweats, Other PSYCHOLOGICAL ROS: No: Anxiety, Behavioral Disorder, Concentration difficultie, Decreased libido, Depression, Disorientation, Hallucinations, Hostility, Irritablity, Memory difficulties, Mood Swings, Obsessive thoughts, Physical abuse, Sexual abuse, Sleep disturbances, Suicidal ideation, Other Eyes: No Blurry vision, No Decreased vision, No Double vision, No Dry eyes, No Excessive tearing, No Eye Pain, No Itchy Eyes, No Loss of vision, No Photophobia, No Scotomata, No Uses contacts, No Uses glasses, No Other HEENT: No: Heacaches, Visual Changes, Hearing change, Nasal congestion, Nasal discharge, Oral lesions, Sinus pain, Sore Throat, Epistaxis, Sneezing, Snoring, Tinnitus, Vertigo, Vocal changes, Other ALLERGY AND IMMUNOLOGY: No: Hives, Insect Bite Sensitivity, Itchy/Watery Eyes, Nasal Congestion, Post Nasal Drip, Seasonal Allergies, Other Hematological and Lymphatic: No: Bleeding Problems, Blood Clots, Blood Transfusions, Brusing, Night Sweats, Pallor, Swollen Lymph Nodes, Other ENDOCRINE: No: Breast Changes, Galactorrhea, Hair Pattern Changes, Hot Flashes, Malaise/lethargy, Mood Swings, Palpitations, Polydipsia/polyuria, Skin Changes, Temperature Intolerance, Unexpected Weight Changes, Other Breast: No New/Changing Breast Lumps, No Nipple changes, No Nipple discharge, No Other Respiratory: YES: Cough, Shortness of breath, SOB with excertion; No: Hemoptysis, Orthopnea, Pleuritic Pain, Sputum Changes, Stridor, Tachypnea, Wheezing, Other Cardiovascular: No Chest Pain, No Palpitations, No Orthopnea, No Paroxysmal Noc. Dyspnea, No Edema, No Lt Headedness, No Other Gastrointestinal: Yes Nausea; No Vomiting, No Abdominal Pain, No Diarrhea, No Constipation, No Melena, No Hematochezia, No Other Genitourinary: No Dysuria, No Frequency, No Incontinence, No Hematuria, No Retention, No Discharge, No Urgency, No Pain, No Flank Pain, No Other, No , No , No , No , No , No , No Musculoskeletal: No Gait Disturbance, No Joint Pain, No Joint Stiffness, No Joint Swelling, No Muscle Pain, No Muscular Weakness, No Pain In:, No Swelling In:, No Other Neurological: No Behavorial Changes, No Bowel/Bladder ControlChng, No Confusion, No Dizziness, No Gait Disturbance, No Headaches, No Impaired Coord/balance, No Memory Loss, No Numbness/Tingling, No Seizures, No Speech Problems, No Tremors, No Visual Changes, No Weakness, No Other Skin: No Dry Skin, No Eczema, No Hair Changes, No Lumps, No Mole Changes, No Mottling, No Nail Changes, No Pruritus, No Rash, No Skin Lesion Changes, No Other, No Acne Physical Exam General: Alert, Oriented X3, Cooperative, mild distress HEENT: Atraumatic, PERRLA, EOMI, Mucous membr. moist/pink Lungs: Other (Right lower lobe rhonchi) Heart: S1S2, RRR, no thrills, no rubs, no gallops, no murmurs Abdomen: Normal bowel sounds, Soft, No tenderness, No hepatosplenomegaly, No masses Rectal Exam: not examined Extremities: No clubbing, No cyanosis, No edema, Normal pulses, No tenderness/swelling Skin: No rashes, No breakdown, No significant lesion Neuro: Normal speech, Strength at 5/5 X4 ext, Normal tone, Sensation intact, Cranial nerves 3-12 NL, Reflexes 2+ Psych/Mental Status: Mental status NL, Mood NL Vitals Vitals Vital Signs Date Time Temp Pulse Resp B/P (MAP) Pulse Ox O2 Delivery O2 Flow Rate FiO2 08/11/21 03:04 99.0 85 18 163/65 (97) 88 Nasal Cannula 99.0 08/10/21 20:03 2.0 Labs Labs Laboratory Tests Test 08/10/21 17:05 08/10/21 17:30 08/10/21 17:38 08/10/21 18:00 Glucose (Fingerstick) 495 mg/dL (70-99) White Blood Count 5.5 x10^3/uL (4.0-11.0) Red Blood Count 4.03 x10^6/uL (3.50-5.40) Hemoglobin 10.9 g/dL (12.0-15.5) Hematocrit 34.1 % (36.0-47.0) Mean Corpuscular Volume 85 fL (79-100) Mean Corpuscular Hemoglobin 27 pg (25-35) Mean Corpuscular Hemoglobin Concent 32 g/dL (31-37) Red Cell Distribution Width 14.3 % (11.5-14.5) Platelet Count 108 x10^3/uL (140-400) Neutrophils (%) (Auto) 74 % (31-73) Lymphocytes (%) (Auto) 13 % (24-48) Monocytes (%) (Auto) 14 % (0-9) Eosinophils (%) (Auto) 0 % (0-3) Basophils (%) (Auto) 0 % (0-3) Neutrophils # (Auto) 4.0 x10^3/uL (1.8-7.7) Lymphocytes # (Auto) 0.7 x10^3/uL (1.0-4.8) Monocytes # (Auto) 0.7 x10^3/uL (0.0-1.1) Eosinophils # (Auto) 0.0 x10^3/uL (0.0-0.7) Basophils # (Auto) 0.0 x10^3/uL (0.0-0.2) Sodium Level 137 mmol/L (136-145) Potassium Level 4.1 mmol/L (3.5-5.1) Chloride Level 98 mmol/L (98-107) Carbon Dioxide Level 25 mmol/L (21-32) Anion Gap 14 (6-14) Blood Urea Nitrogen 30 mg/dL (7-20) Creatinine 2.1 mg/dL (0.6-1.0) Estimated GFR (Cockcroft-Gault) 28.0 BUN/Creatinine Ratio 14 (6-20) Glucose Level 479 mg/dL (70-99) Lactic Acid Level 2.3 mmol/L (0.4-2.0) Calcium Level 9.0 mg/dL (8.5-10.1) Total Bilirubin 1.0 mg/dL (0.2-1.0) Aspartate Amino Transf (AST/SGOT) 19 U/L (15-37) Alanine Aminotransferase (ALT/SGPT) 16 U/L (14-59) Alkaline Phosphatase 59 U/L (46-116) Total Protein 8.6 g/dL (6.4-8.2) Albumin 3.4 g/dL (3.4-5.0) Albumin/Globulin Ratio 0.7 (1.0-1.7) Influenza Type A Antigen Negative (NEGATIVE) Influenza Type B Antigen Negative (NEGATIVE) SARS-CoV-2 Antigen (Rapid) Negative (NEGATIVE) Magnesium Level 1.9 mg/dL (1.8-2.4) Acetone Level Neg (NEG) O2 Saturation 88 % (92-99) Arterial Blood pH 7.44 (7.35-7.45) Arterial Blood pCO2 at Patient Temp 40 mmHg (35-46) Arterial Blood pO2 at Patient Temp 55 mmHg (65-108) Arterial Blood HCO3 26 mmol/L (21-28) Arterial Blood Base Excess 2 mmol/L (-3-3) Oxyhemoglobin 87.5 % Methemoglobin 0.5 % (0.0-1.9) Carbon Monoxide, Quantitative 0.3 % (0.0-1.9) FiO2 4 lpm Test 08/10/21 19:33 08/11/21 02:00 Glucose (Fingerstick) 382 mg/dL (70-99) Lactic Acid Level 1.2 mmol/L (0.4-2.0) Laboratory Tests Test 08/10/21 17:05 08/10/21 17:30 08/10/21 17:38 08/10/21 18:00 Glucose (Fingerstick) 495 mg/dL (70-99) White Blood Count 5.5 x10^3/uL (4.0-11.0) Red Blood Count 4.03 x10^6/uL (3.50-5.40) Hemoglobin 10.9 g/dL (12.0-15.5) Hematocrit 34.1 % (36.0-47.0) Mean Corpuscular Volume 85 fL (79-100) Mean Corpuscular Hemoglobin 27 pg (25-35) Mean Corpuscular Hemoglobin Concent 32 g/dL (31-37) Red Cell Distribution Width 14.3 % (11.5-14.5) Platelet Count 108 x10^3/uL (140-400) Neutrophils (%) (Auto) 74 % (31-73) Lymphocytes (%) (Auto) 13 % (24-48) Monocytes (%) (Auto) 14 % (0-9) Eosinophils (%) (Auto) 0 % (0-3) Basophils (%) (Auto) 0 % (0-3) Neutrophils # (Auto) 4.0 x10^3/uL (1.8-7.7) Lymphocytes # (Auto) 0.7 x10^3/uL (1.0-4.8) Monocytes # (Auto) 0.7 x10^3/uL (0.0-1.1) Eosinophils # (Auto) 0.0 x10^3/uL (0.0-0.7) Basophils # (Auto) 0.0 x10^3/uL (0.0-0.2) Sodium Level 137 mmol/L (136-145) Potassium Level 4.1 mmol/L (3.5-5.1) Chloride Level 98 mmol/L (98-107) Carbon Dioxide Level 25 mmol/L (21-32) Anion Gap 14 (6-14) Blood Urea Nitrogen 30 mg/dL (7-20) Creatinine 2.1 mg/dL (0.6-1.0) Estimated GFR (Cockcroft-Gault) 28.0 BUN/Creatinine Ratio 14 (6-20) Glucose Level 479 mg/dL (70-99) Lactic Acid Level 2.3 mmol/L (0.4-2.0) Calcium Level 9.0 mg/dL (8.5-10.1) Total Bilirubin 1.0 mg/dL (0.2-1.0) Aspartate Amino Transf (AST/SGOT) 19 U/L (15-37) Alanine Aminotransferase (ALT/SGPT) 16 U/L (14-59) Alkaline Phosphatase 59 U/L (46-116) Total Protein 8.6 g/dL (6.4-8.2) Albumin 3.4 g/dL (3.4-5.0) Albumin/Globulin Ratio 0.7 (1.0-1.7) Influenza Type A Antigen Negative (NEGATIVE) Influenza Type B Antigen Negative (NEGATIVE) SARS-CoV-2 Antigen (Rapid) Negative (NEGATIVE) Magnesium Level 1.9 mg/dL (1.8-2.4) Acetone Level Neg (NEG) O2 Saturation 88 % (92-99) Arterial Blood pH 7.44 (7.35-7.45) Arterial Blood pCO2 at Patient Temp 40 mmHg (35-46) Arterial Blood pO2 at Patient Temp 55 mmHg (65-108) Arterial Blood HCO3 26 mmol/L (21-28) Arterial Blood Base Excess 2 mmol/L (-3-3) Oxyhemoglobin 87.5 % Methemoglobin 0.5 % (0.0-1.9) Carbon Monoxide, Quantitative 0.3 % (0.0-1.9) FiO2 4 lpm Test 08/10/21 19:33 08/11/21 02:00 Glucose (Fingerstick) 382 mg/dL (70-99) Lactic Acid Level 1.2 mmol/L (0.4-2.0) Images Images Chest radiograph: Single view of chest obtained. Cardiac mediastinal silhouette is similar to prior. Degenerative changes of the spine. Patchy opacity right chest base with some elevation right hemidiaphragm IMPRESSION: * Focal opacity at right chest base could be atelectasis, infiltrate or aspiration. Follow-up could be obtained to ensure this appropriately resolves to exclude a persistent nodule in the area. VTE Prophylaxis Ordered VTE Prophylaxis Devices: Yes VTE Pharmacological Prophylaxi: Yes Assessment/Plan Assessment/Plan Acute respiratory failure with hypoxia -likely due to community-acquired pneumonia. No respiratory history. Will wean O2 as tolerated incentive spirometer nebulizers and Rocephin and doxycycline. Pulmonology was consulted by ED Right lower lobe pneumonia -likely community-acquired. Given comorbidities likely is gram-negative. Rocephin doxycycline. Anemia -possibly of chronic disease however will check iron and B12 levels Thrombocytopenia -likely due to infection will trend especially while on heparin Acute kidney injury -likely vasomotor nephropathy. May have some CKD 2 based on prior creatinine DM2 -A1c 8.1 as of 3 years ago. Basal bolus plus insulin HTN -continue home meds FEN - ADA diet PPX - heparin FULL CODE Dispo - inpatient Justifications for Admission Other Justification JESSI NORRIS MD Aug 11, 2021 07:24
[2021-08-11] MEDS ORDERED: DEXTROSE 50% 25 GM / 50ML DISP.SYRIN. IV PRN (07:30)
[2021-08-11] MEDS ORDERED: traMADol 50 MG TABLET PO PRN (07:30)
[2021-08-11] MEDS ORDERED: ONDANSETRON PF 4 MG/2 ML VIAL. IVP PRN (07:30)
[2021-08-11] MEDS ORDERED: hydrALAZINE 20 MG/ML VIAL. IVP PRN (07:30)
[2021-08-11] MEDS ORDERED: ALBUTEROL SULFATE 2.5 MG/3 ML NEBU. NEB PRN (07:30)
[2021-08-11] MEDS ORDERED: IV DEXTROSE 5% 250 ML BAG. IV PRN (07:30)
[2021-08-11] MEDS ORDERED: ACETAMINOPHEN 325 MG TABLET. PO PRN (07:30)
[2021-08-11] MEDS ORDERED: fentaNYL PF VIAL 100 MCG/2 ML VIAL IVP PRN (07:30)
[2021-08-11] MEDS: IPRATRPIUM/ALBUTEROL 0.5/2.5MG 3 ML NEBU. NEB SCH ×4 (08:00→18:06)
[2021-08-11] MEDS: INSULIN LISPRO 300 UNITS/3 ML VIAL. SQ SCH ×4 (08:29→20:44)
--- NOTE | 2021-08-11 08:51 | CONS ---
DATE OF CONSULTATION: 08/11/2021 PULMONARY CONSULTATION ATTENDING PHYSICIAN: Dr. Acevedo. REASON FOR CONSULTATION: Dyspnea. HISTORY OF PRESENT ILLNESS: The patient is a 71-year-old female with a BMI of 29.3. She has no significant tobacco use. She has been sick for the last 1 week. She was brought into the hospital with complaint of cough. She also had some shortness of breath. She denies any chest pain. No fever, no chills. The patient is updated on her vaccine. Her chest x-ray showed infiltrate in the right lower lobe. Her saturations were 82% on room air. Currently, requiring 5 liters. Consultation requested for further evaluation and management. PAST MEDICAL HISTORY: Hyperlipidemia, peripheral neuropathy, diabetes. PAST SURGICAL HISTORY: Appendectomy. SOCIAL HISTORY: Nonsmoker. ALLERGIES: None. MEDICATIONS: Reviewed as listed in the MRAD including doxycycline, DuoNebs, Rocephin. REVIEW OF SYSTEMS: Twelve-point review of system obtained. Pertinent positives discussed in my present illness, otherwise noncontributory. All systems that were negative were reviewed as well. FAMILY HISTORY: Noncontributory to lungs. PHYSICAL EXAMINATION: VITAL SIGNS: Reviewed. T-max of 99, pulse ox 92% on 5 liters. NECK: Supple. LUNGS: With diminished breath sounds bilaterally. CARDIOVASCULAR: With a regular rate. ABDOMEN: Soft, obese. EXTREMITIES: With no pitting edema. LABORATORY DATA: Reviewed. COVID negative. Influenza negative. BUN 13, creatinine of 2.1. ABGs with a pH of 7.4, pCO2 of 40 and a pO2 of 55 on 4 liters. White cell count 5.5. IMPRESSION: 1. Acute hypoxic respiratory failure secondary to right lower lobe community-acquired pneumonia. Underlying obesity another contributing factor. 2. Abnormal chest x-ray consistent with right lower lobe pneumonia. 3. COVID negative and influenza negative. 4. Acute kidney injury. Question component of chronic kidney disease. RECOMMENDATIONS: 1. Continue present oxygen, keep saturation 92% and above. 2. Continue present antibiotics. 3. DuoNebs. 4. DVT prophylaxis with subcutaneous heparin. 5. We will follow chest x-ray in few days. If needed, we will order a CT chest. 6. Discussed with HINA. ROSAMARIA/GARFIELD DR: ROSAMARIA/philomena TID: [id number]
[2021-08-11] MEDS: ASPIRIN ENTERIC COATED 81 MG TABLET.DR. PO SCH (09:44)
[2021-08-11] MEDS: CHOLESTYRAMINE/ASPARTAME 4 GM PACKET PO SCH ×2 (09:45→20:39)
[2021-08-11] MEDS: CARVEDILOL 12.5 MG TABLET. PO SCH ×2 (09:45→17:44)
[2021-08-11] MEDS: cefTRIAXone IV Push 1 GM VIAL. IVP SCH (09:46)
[2021-08-11] MEDS: DOXYCYCLINE HYCLATE 100 MG in IV DEXTROSE 5% 100ML 100 ML IV SCH ×2 (09:46→20:39)
[2021-08-11] MEDS: HEPARIN for SUB-Q USE 5,000 UNIT/ML VIAL. SQ SCH ×3 (10:01→20:59)
--- NOTE | 2021-08-11 10:10 | NUR ---
PATIENT NAUSEATED AT THIS TIME, SPIT UP LESS MUELLER 50CC, PHLEGM, IV ZOFRAN GIVEN, WILL MONITOR.
[2021-08-11 11:00] VITALS: BP 158/74
[2021-08-11] MEDS: PANTOPRAZOLE 40 MG TABLET.DR. PO SCH (12:20)
[2021-08-11 15:00] VITALS: BP 149/64
[2021-08-11 19:00] VITALS: BP 125/68
[2021-08-11] MEDS: PSYLLIUM HUSK (SUGAR FREE) 1 PKT PACKET PO SCH (20:39)
[2021-08-11] MEDS: LATANOPROST 0.005% OPHTH SOLUTION 2.5ML BOTTLE. OU SCH (20:39)
[2021-08-11] MEDS: guaiFENesin DM 200MG/20MG 10 ML SYRUP PO PRN (20:39)
[2021-08-11] MEDS: GABAPENTIN 300 MG CAPSULE. PO SCH (20:40)
[2021-08-11] MEDS: INSULIN GLARGINE SYRINGE. SQ SCH (20:58)
[2021-08-11 23:03] VITALS: BP 139/70
[2021-08-12 03:04] VITALS: BP 168/90
[2021-08-12] MEDS: HEPARIN for SUB-Q USE 5,000 UNIT/ML VIAL. SQ SCH ×3 (06:46→20:49)
[2021-08-12 07:00] VITALS: BP 125/59
[2021-08-12] MEDS: IPRATRPIUM/ALBUTEROL 0.5/2.5MG 3 ML NEBU. NEB SCH ×4 (07:53→21:00)
[2021-08-12 08:00] LABS: BASO % 0 % (0-3); EOS % 0 % (0-3); HEMATOCRIT 32.1 % (36.0-47.0); HEMOGLOBIN 10.8 g/dL (12.0-15.5); LYMPH # 0.9 x10^3/uL (1.0-4.8); LYMPH % 15 % (24-48); MEAN CORPUSCULAR HEMOGLOBIN 28 pg (25-35); MEAN CORPUSCULAR HGB CONC 34 g/dL (31-37); MEAN CORPUSCULAR VOLUME 85 fL (79-100); MONO # 0.6 x10^3/uL (0.0-1.1); MONO % 10 % (0-9); NEUT # 4.3 x10^3/uL (1.8-7.7); NEUT % 75 % (31-73); PLATELET COUNT 104 x10^3/uL (140-400); RED CELL DISTRIBUTION WIDTH 14.3 % (11.5-14.5); WHITE BLOOD COUNT 5.7 x10^3/uL (4.0-11.0)
[2021-08-12] MEDS: INSULIN LISPRO 300 UNITS/3 ML VIAL. SQ SCH ×4 (08:12→20:52)
[2021-08-12] MEDS: PANTOPRAZOLE 40 MG TABLET.DR. PO SCH (08:13)
[2021-08-12] MEDS: cefTRIAXone IV Push 1 GM VIAL. IVP SCH (08:16)
[2021-08-12] MEDS: CARVEDILOL 12.5 MG TABLET. PO SCH ×2 (08:16→16:51)
[2021-08-12 08:26] LABS: CALCIUM 8.8 mg/dL (8.5-10.1); CREATININE 1.6 mg/dL (0.6-1.0); GFR 38.3; POTASSIUM 3.3 mmol/L (3.5-5.1)
[2021-08-12] MEDS: ASPIRIN ENTERIC COATED 81 MG TABLET.DR. PO SCH (09:12)
[2021-08-12] MEDS: DOXYCYCLINE HYCLATE 100 MG in IV DEXTROSE 5% 100ML 100 ML IV SCH ×2 (09:13→20:52)
--- NOTE | 2021-08-12 10:08 | EKG ---
[facility] [address] [place] [address] Test Date: 2021-08-10 Test Time: 17:58:09 Pat Name: RONALDO GARCIA Department: Room: 530 1 Gender: F Director Of Physical Therapy: : 1950 Requested By: MERA YIN Order Number: [id number] Reading MD: Shyam Mcrae Measurements Intervals [place] Rate: 69 P: 18 TN: 208 QRS: -21 QRSD: 126 T: 98 QT: 426 QTc: 458 Interpretive Statements SINUS RHYTHM LEFTWARD AXIS LEFT BUNDLE BRANCH BLOCK Electronically Signed On 08-14-2021 18:37:39 CDT by Shyam Mcrae
[2021-08-12] MEDS: CHOLESTYRAMINE/ASPARTAME 4 GM PACKET PO SCH ×2 (10:47→20:51)
[2021-08-12 11:00] VITALS: BP 132/65
--- NOTE | 2021-08-12 11:20 | PDOC ---
PULMONARY PROGRESS NOTES DATE: 08/12/21 TIME: 11:19 Subjective Patient is starting to feel better. Vitals Vital Signs Date Time Temp Pulse Resp B/P (MAP) Pulse Ox O2 Delivery O2 Flow Rate FiO2 08/12/21 11:00 97.5 74 20 132/65 (87) 91 Nasal Cannula 97.5 08/12/21 08:21 3.0 General: Alert, No acute distress Lungs: Clear Cardiovascular: S1, S2 Abdomen: Soft, Other (Obese) Neuro Exam: Alert Extremities: No Edema Skin: Warm Labs Laboratory Tests Test 08/10/21 17:05 08/10/21 17:30 08/10/21 17:38 08/10/21 18:00 Glucose (Fingerstick) 495 mg/dL (70-99) White Blood Count 5.5 x10^3/uL (4.0-11.0) Red Blood Count 4.03 x10^6/uL (3.50-5.40) Hemoglobin 10.9 g/dL (12.0-15.5) Hematocrit 34.1 % (36.0-47.0) Mean Corpuscular Volume 85 fL (79-100) Mean Corpuscular Hemoglobin 27 pg (25-35) Mean Corpuscular Hemoglobin Concent 32 g/dL (31-37) Red Cell Distribution Width 14.3 % (11.5-14.5) Platelet Count 108 x10^3/uL (140-400) Neutrophils (%) (Auto) 74 % (31-73) Lymphocytes (%) (Auto) 13 % (24-48) Monocytes (%) (Auto) 14 % (0-9) Eosinophils (%) (Auto) 0 % (0-3) Basophils (%) (Auto) 0 % (0-3) Neutrophils # (Auto) 4.0 x10^3/uL (1.8-7.7) Lymphocytes # (Auto) 0.7 x10^3/uL (1.0-4.8) Monocytes # (Auto) 0.7 x10^3/uL (0.0-1.1) Eosinophils # (Auto) 0.0 x10^3/uL (0.0-0.7) Basophils # (Auto) 0.0 x10^3/uL (0.0-0.2) Sodium Level 137 mmol/L (136-145) Potassium Level 4.1 mmol/L (3.5-5.1) Chloride Level 98 mmol/L (98-107) Carbon Dioxide Level 25 mmol/L (21-32) Anion Gap 14 (6-14) Blood Urea Nitrogen 30 mg/dL (7-20) Creatinine 2.1 mg/dL (0.6-1.0) Estimated GFR (Cockcroft-Gault) 28.0 BUN/Creatinine Ratio 14 (6-20) Glucose Level 479 mg/dL (70-99) Lactic Acid Level 2.3 mmol/L (0.4-2.0) Calcium Level 9.0 mg/dL (8.5-10.1) Total Bilirubin 1.0 mg/dL (0.2-1.0) Aspartate Amino Transf (AST/SGOT) 19 U/L (15-37) Alanine Aminotransferase (ALT/SGPT) 16 U/L (14-59) Alkaline Phosphatase 59 U/L (46-116) Total Protein 8.6 g/dL (6.4-8.2) Albumin 3.4 g/dL (3.4-5.0) Albumin/Globulin Ratio 0.7 (1.0-1.7) Influenza Type A Antigen Negative (NEGATIVE) Influenza Type B Antigen Negative (NEGATIVE) SARS-CoV-2 Antigen (Rapid) Negative (NEGATIVE) Magnesium Level 1.9 mg/dL (1.8-2.4) Acetone Level Neg (NEG) O2 Saturation 88 % (92-99) Arterial Blood pH 7.44 (7.35-7.45) Arterial Blood pCO2 at Patient Temp 40 mmHg (35-46) Arterial Blood pO2 at Patient Temp 55 mmHg (65-108) Arterial Blood HCO3 26 mmol/L (21-28) Arterial Blood Base Excess 2 mmol/L (-3-3) Oxyhemoglobin 87.5 % Methemoglobin 0.5 % (0.0-1.9) Carbon Monoxide, Quantitative 0.3 % (0.0-1.9) FiO2 4 lpm Test 08/10/21 19:33 08/11/21 02:00 08/11/21 07:57 08/11/21 12:12 Glucose (Fingerstick) 382 mg/dL (70-99) 287 mg/dL (70-99) 279 mg/dL (70-99) Lactic Acid Level 1.2 mmol/L (0.4-2.0) Test 08/11/21 17:19 08/11/21 20:43 08/12/21 06:48 08/12/21 07:47 Glucose (Fingerstick) 267 mg/dL (70-99) 173 mg/dL (70-99) 177 mg/dL (70-99) White Blood Count 5.7 x10^3/uL (4.0-11.0) Red Blood Count 3.80 x10^6/uL (3.50-5.40) Hemoglobin 10.8 g/dL (12.0-15.5) Hematocrit 32.1 % (36.0-47.0) Mean Corpuscular Volume 85 fL (79-100) Mean Corpuscular Hemoglobin 28 pg (25-35) Mean Corpuscular Hemoglobin Concent 34 g/dL (31-37) Red Cell Distribution Width 14.3 % (11.5-14.5) Platelet Count 104 x10^3/uL (140-400) Neutrophils (%) (Auto) 75 % (31-73) Lymphocytes (%) (Auto) 15 % (24-48) Monocytes (%) (Auto) 10 % (0-9) Eosinophils (%) (Auto) 0 % (0-3) Basophils (%) (Auto) 0 % (0-3) Neutrophils # (Auto) 4.3 x10^3/uL (1.8-7.7) Lymphocytes # (Auto) 0.9 x10^3/uL (1.0-4.8) Monocytes # (Auto) 0.6 x10^3/uL (0.0-1.1) Eosinophils # (Auto) 0.0 x10^3/uL (0.0-0.7) Basophils # (Auto) 0.0 x10^3/uL (0.0-0.2) Sodium Level 141 mmol/L (136-145) Potassium Level 3.3 mmol/L (3.5-5.1) Chloride Level 103 mmol/L (98-107) Carbon Dioxide Level 26 mmol/L (21-32) Anion Gap 12 (6-14) Blood Urea Nitrogen 30 mg/dL (7-20) Creatinine 1.6 mg/dL (0.6-1.0) Estimated GFR (Cockcroft-Gault) 38.3 Glucose Level 168 mg/dL (70-99) Calcium Level 8.8 mg/dL (8.5-10.1) Laboratory Tests Test 08/11/21 12:12 08/11/21 17:19 08/11/21 20:43 08/12/21 06:48 Glucose (Fingerstick) 279 mg/dL (70-99) 267 mg/dL (70-99) 173 mg/dL (70-99) White Blood Count 5.7 x10^3/uL (4.0-11.0) Red Blood Count 3.80 x10^6/uL (3.50-5.40) Hemoglobin 10.8 g/dL (12.0-15.5) Hematocrit 32.1 % (36.0-47.0) Mean Corpuscular Volume 85 fL (79-100) Mean Corpuscular Hemoglobin 28 pg (25-35) Mean Corpuscular Hemoglobin Concent 34 g/dL (31-37) Red Cell Distribution Width 14.3 % (11.5-14.5) Platelet Count 104 x10^3/uL (140-400) Neutrophils (%) (Auto) 75 % (31-73) Lymphocytes (%) (Auto) 15 % (24-48) Monocytes (%) (Auto) 10 % (0-9) Eosinophils (%) (Auto) 0 % (0-3) Basophils (%) (Auto) 0 % (0-3) Neutrophils # (Auto) 4.3 x10^3/uL (1.8-7.7) Lymphocytes # (Auto) 0.9 x10^3/uL (1.0-4.8) Monocytes # (Auto) 0.6 x10^3/uL (0.0-1.1) Eosinophils # (Auto) 0.0 x10^3/uL (0.0-0.7) Basophils # (Auto) 0.0 x10^3/uL (0.0-0.2) Sodium Level 141 mmol/L (136-145) Potassium Level 3.3 mmol/L (3.5-5.1) Chloride Level 103 mmol/L (98-107) Carbon Dioxide Level 26 mmol/L (21-32) Anion Gap 12 (6-14) Blood Urea Nitrogen 30 mg/dL (7-20) Creatinine 1.6 mg/dL (0.6-1.0) Estimated GFR (Cockcroft-Gault) 38.3 Glucose Level 168 mg/dL (70-99) Calcium Level 8.8 mg/dL (8.5-10.1) Test 08/12/21 07:47 Glucose (Fingerstick) 177 mg/dL (70-99) Medications Active Scripts Medications Dose Route/Sig Max Daily Dose Days Date Category Levemir (Insulin Detemir) 100 Unit/1 Ml Vial 25 Unit SQ DAILY 30 01/04/19 Rx Cholestyramine Light Packet (Cholestyramine/Aspartame) 4 Gm Powd.pack 4 Gm PO BID 09/01/18 Reported Gabapentin (Gabapentin) 300 Mg Capsule 300 Mg PO DAILY 05/07/17 Reported Latanoprost 2.5 Ml Drops 1 Drop EACHEYE QHS 05/07/17 Reported Omeprazole 40 Mg Capsule. 1 Cap PO DAILY 05/07/17 Reported Carvedilol 25 Mg Tablet 25 Mg PO BIDWMEALS 03/13/15 Reported Aspir-Low (Aspirin) 81 Mg Tablet. 81 Mg PO DAILY 04/06/13 Reported Norvasc (Amlodipine Besylate) 10 Mg Tablet 10 Mg PO DAILY 04/06/13 Reported Impression . 1. Acute hypoxic respiratory failure secondary to right lower lobe community-acquired pneumonia. Underlying obesity another contributing factor. 2. Abnormal chest x-ray consistent with right lower lobe pneumonia. 3. COVID negative and influenza negative. 4. Acute kidney injury. Question component of chronic kidney disease. Plan . RECOMMENDATIONS: 1. Continue present oxygen, keep saturation 92% and above. 2. Continue present antibiotics. 3. DuoNebs. 4. DVT prophylaxis with subcutaneous heparin. 5. We will follow chest x-ray in few days. If needed, we will order a CT chest. 6. Discussed with HINA. BEATRICE MONREAL MD Aug 12, 2021 11:19
--- NOTE | 2021-08-12 11:49 | PDOC ---
[employer] PROGRESS NOTE Date of Service DOS: DATE: 08/12/21 TIME: 11:46 Chief Complaint Chief Complaint Acute respiratory failure with hypoxia -likely due to community-acquired pneumonia. No respiratory history. Will wean O2 as tolerated incentive spirometer nebulizers and Rocephin and doxycycline. Pulmonology was consulted by ED Right lower lobe pneumonia -likely community-acquired. Given comorbidities likely is gram-negative. Rocephin doxycycline. Anemia -possibly of chronic disease however will check iron and B12 levels Thrombocytopenia -likely due to infection will trend especially while on heparin Acute kidney injury -likely vasomotor nephropathy. May have some CKD 2 based on prior creatinine DM2 -A1c 8.1 as of 3 years ago. Basal bolus plus insulin HTN -continue home meds FEN - ADA diet PPX - heparin FULL CODE Dispo - inpatient History of Present Illness History of Present Illness 08/12 Patient seen and examined at bedside. Resting in bed on 3 L nasal cannula said her breathing was improving but still feels somewhat short of breath. Pulmonary note reviewed. Continue current antibiotic selection. Discussed with bedside RN. Scheduled duo nebs continue. PT OT ordered. May need placement which she is agreeable to. Otherwise continue current. Vitals/I&O Vitals/I&O: Vital Signs Date Time Temp Pulse Resp B/P (MAP) Pulse Ox O2 Delivery O2 Flow Rate FiO2 08/12/21 11:38 97 Nasal Cannula 3.0 08/12/21 11:00 97.5 74 20 132/65 (87) 97.5 I & O 08/11/21 08/11/21 08/12/21 15:00 23:00 07:00 Intake Total 200 ml Output Total 350 ml 100 ml Balance -150 ml -100 ml Physical Exam General: Alert, Oriented X3, Cooperative, mild distress Heart: Regular rate Lungs: Clear Abdomen: Normal bowel sounds, Soft, No tenderness, No hepatosplenomegaly, No masses Extremities: No clubbing, No cyanosis, No edema, Normal pulses, No tenderness/swelling Skin: No rashes, No breakdown, No significant lesion Labs Labs: Laboratory Tests Test 08/11/21 12:12 08/11/21 17:19 08/11/21 20:43 08/12/21 06:48 Glucose (Fingerstick) 279 mg/dL (70-99) 267 mg/dL (70-99) 173 mg/dL (70-99) White Blood Count 5.7 x10^3/uL (4.0-11.0) Red Blood Count 3.80 x10^6/uL (3.50-5.40) Hemoglobin 10.8 g/dL (12.0-15.5) Hematocrit 32.1 % (36.0-47.0) Mean Corpuscular Volume 85 fL (79-100) Mean Corpuscular Hemoglobin 28 pg (25-35) Mean Corpuscular Hemoglobin Concent 34 g/dL (31-37) Red Cell Distribution Width 14.3 % (11.5-14.5) Platelet Count 104 x10^3/uL (140-400) Neutrophils (%) (Auto) 75 % (31-73) Lymphocytes (%) (Auto) 15 % (24-48) Monocytes (%) (Auto) 10 % (0-9) Eosinophils (%) (Auto) 0 % (0-3) Basophils (%) (Auto) 0 % (0-3) Neutrophils # (Auto) 4.3 x10^3/uL (1.8-7.7) Lymphocytes # (Auto) 0.9 x10^3/uL (1.0-4.8) Monocytes # (Auto) 0.6 x10^3/uL (0.0-1.1) Eosinophils # (Auto) 0.0 x10^3/uL (0.0-0.7) Basophils # (Auto) 0.0 x10^3/uL (0.0-0.2) Sodium Level 141 mmol/L (136-145) Potassium Level 3.3 mmol/L (3.5-5.1) Chloride Level 103 mmol/L (98-107) Carbon Dioxide Level 26 mmol/L (21-32) Anion Gap 12 (6-14) Blood Urea Nitrogen 30 mg/dL (7-20) Creatinine 1.6 mg/dL (0.6-1.0) Estimated GFR (Cockcroft-Gault) 38.3 Glucose Level 168 mg/dL (70-99) Calcium Level 8.8 mg/dL (8.5-10.1) Test 08/12/21 07:47 08/12/21 11:33 Glucose (Fingerstick) 177 mg/dL (70-99) 228 mg/dL (70-99) Assessment and Plan Assessmemt and Plan Problems Medical Problems: (1) Hyperglycemia Status: Acute (2) Hypoxia Status: Acute (3) Pneumonia Status: Acute Comment Review of Relevant I have reviewed the following items ciera (where applicable) has been applied. Medications: Current Medications Medications (Trade) Dose Ordered Sig/Reginaldo Route PRN Reason Start Time Stop Time Status Last Admin Dose Admin Psyllium Hydrophilic Mucilloid (Metamucil Fiber Packet) 1 pkt QHS PO 08/11/21 21:00 08/11/21 20:39 Gabapentin (Neurontin) 300 mg QHS PO 08/11/21 21:00 08/11/21 20:40 Latanoprost (Xalatan) 1 drop QHS OU 08/11/21 21:00 08/11/21 20:39 Insulin Glargine (Lantus Syringe) 25 unit QHS SQ 08/11/21 21:00 08/11/21 20:58 Justifications for Admission Other Justification JESSI GILL MD Aug 12, 2021 11:49
[2021-08-12 15:00] VITALS: BP 102/57
[2021-08-12 19:00] VITALS: BP 97/50
[2021-08-12] MEDS: LATANOPROST 0.005% OPHTH SOLUTION 2.5ML BOTTLE. OU SCH (20:49)
[2021-08-12] MEDS: GABAPENTIN 300 MG CAPSULE. PO SCH (20:50)
[2021-08-12] MEDS: LACTOBACILLUS RHAMNOSUS GG 1 CAPSULE. PO SCH (20:50)
[2021-08-12] MEDS: PSYLLIUM HUSK (SUGAR FREE) 1 PKT PACKET PO SCH (20:51)
[2021-08-12] MEDS: INSULIN GLARGINE SYRINGE. SQ SCH (20:54)
[2021-08-12] MEDS: guaiFENesin DM 200MG/20MG 10 ML SYRUP PO PRN (21:06)
[2021-08-12 23:00] VITALS: BP 116/89
[2021-08-13 03:00] VITALS: BP 115/58
[2021-08-13] MEDS: HEPARIN for SUB-Q USE 5,000 UNIT/ML VIAL. SQ SCH ×3 (05:31→22:36)
[2021-08-13 07:00] VITALS: BP 134/53
[2021-08-13] MEDS: INSULIN LISPRO 300 UNITS/3 ML VIAL. SQ SCH ×4 (07:30→20:54)
[2021-08-13] MEDS: IPRATRPIUM/ALBUTEROL 0.5/2.5MG 3 ML NEBU. NEB SCH ×4 (07:52→21:04)
[2021-08-13] MEDS: PANTOPRAZOLE 40 MG TABLET.DR. PO SCH (07:55)
[2021-08-13 07:58] LABS: BASO % 0 % (0-3); EOS % 1 % (0-3); HEMATOCRIT 30.6 % (36.0-47.0); HEMOGLOBIN 9.8 g/dL (12.0-15.5); LYMPH # 1.4 x10^3/uL (1.0-4.8); LYMPH % 20 % (24-48); MEAN CORPUSCULAR HEMOGLOBIN 27 pg (25-35); MEAN CORPUSCULAR HGB CONC 32 g/dL (31-37); MEAN CORPUSCULAR VOLUME 84 fL (79-100); MONO # 0.6 x10^3/uL (0.0-1.1); MONO % 8 % (0-9); NEUT # 4.9 x10^3/uL (1.8-7.7); NEUT % 71 % (31-73); PLATELET COUNT 114 x10^3/uL (140-400); RED BLOOD COUNT 3.65 x10^6/uL (3.50-5.40); WHITE BLOOD COUNT 6.9 x10^3/uL (4.0-11.0)
[2021-08-13] MEDS: cefTRIAXone IV Push 1 GM VIAL. IVP SCH (08:00)
[2021-08-13] MEDS: CARVEDILOL 12.5 MG TABLET. PO SCH ×2 (08:00→16:35)
[2021-08-13 08:16] LABS: CALCIUM 8.8 mg/dL (8.5-10.1); CREATININE 2.1 mg/dL (0.6-1.0); POTASSIUM 3.3 mmol/L (3.5-5.1)
--- NOTE | 2021-08-13 08:22 | PDOC ---
PULMONARY PROGRESS NOTES DATE: 08/13/21 TIME: 08:22 Subjective Patient feels much better, no increasing cough or mucus production Vitals Vital Signs Date Time Temp Pulse Resp B/P (MAP) Pulse Ox O2 Delivery O2 Flow Rate FiO2 08/13/21 08:04 Nasal Cannula 3.0 08/13/21 08:00 61 134/53 08/13/21 07:52 96 08/13/21 03:00 98.4 18 98.4 ROS: No Nausea, No Chest Pain, No Abdominal Pain, No Increase Cough General: Alert, No acute distress Lungs: Clear Cardiovascular: S1, S2 Abdomen: Soft, Other (Obese) Neuro Exam: Alert Extremities: No Edema Skin: Warm Labs Laboratory Tests Test 08/11/21 12:12 08/11/21 17:19 08/11/21 20:43 08/12/21 06:48 Glucose (Fingerstick) 279 mg/dL (70-99) 267 mg/dL (70-99) 173 mg/dL (70-99) White Blood Count 5.7 x10^3/uL (4.0-11.0) Red Blood Count 3.80 x10^6/uL (3.50-5.40) Hemoglobin 10.8 g/dL (12.0-15.5) Hematocrit 32.1 % (36.0-47.0) Mean Corpuscular Volume 85 fL (79-100) Mean Corpuscular Hemoglobin 28 pg (25-35) Mean Corpuscular Hemoglobin Concent 34 g/dL (31-37) Red Cell Distribution Width 14.3 % (11.5-14.5) Platelet Count 104 x10^3/uL (140-400) Neutrophils (%) (Auto) 75 % (31-73) Lymphocytes (%) (Auto) 15 % (24-48) Monocytes (%) (Auto) 10 % (0-9) Eosinophils (%) (Auto) 0 % (0-3) Basophils (%) (Auto) 0 % (0-3) Neutrophils # (Auto) 4.3 x10^3/uL (1.8-7.7) Lymphocytes # (Auto) 0.9 x10^3/uL (1.0-4.8) Monocytes # (Auto) 0.6 x10^3/uL (0.0-1.1) Eosinophils # (Auto) 0.0 x10^3/uL (0.0-0.7) Basophils # (Auto) 0.0 x10^3/uL (0.0-0.2) Sodium Level 141 mmol/L (136-145) Potassium Level 3.3 mmol/L (3.5-5.1) Chloride Level 103 mmol/L (98-107) Carbon Dioxide Level 26 mmol/L (21-32) Anion Gap 12 (6-14) Blood Urea Nitrogen 30 mg/dL (7-20) Creatinine 1.6 mg/dL (0.6-1.0) Estimated GFR (Cockcroft-Gault) 38.3 Glucose Level 168 mg/dL (70-99) Calcium Level 8.8 mg/dL (8.5-10.1) Test 08/12/21 07:47 08/12/21 11:33 08/12/21 16:35 08/12/21 20:49 Glucose (Fingerstick) 177 mg/dL (70-99) 228 mg/dL (70-99) 255 mg/dL (70-99) 156 mg/dL (70-99) Test 08/13/21 06:40 08/13/21 07:58 White Blood Count 6.9 x10^3/uL (4.0-11.0) Red Blood Count 3.65 x10^6/uL (3.50-5.40) Hemoglobin 9.8 g/dL (12.0-15.5) Hematocrit 30.6 % (36.0-47.0) Mean Corpuscular Volume 84 fL (79-100) Mean Corpuscular Hemoglobin 27 pg (25-35) Mean Corpuscular Hemoglobin Concent 32 g/dL (31-37) Red Cell Distribution Width 14.0 % (11.5-14.5) Platelet Count 114 x10^3/uL (140-400) Neutrophils (%) (Auto) 71 % (31-73) Lymphocytes (%) (Auto) 20 % (24-48) Monocytes (%) (Auto) 8 % (0-9) Eosinophils (%) (Auto) 1 % (0-3) Basophils (%) (Auto) 0 % (0-3) Neutrophils # (Auto) 4.9 x10^3/uL (1.8-7.7) Lymphocytes # (Auto) 1.4 x10^3/uL (1.0-4.8) Monocytes # (Auto) 0.6 x10^3/uL (0.0-1.1) Eosinophils # (Auto) 0.0 x10^3/uL (0.0-0.7) Basophils # (Auto) 0.0 x10^3/uL (0.0-0.2) Sodium Level 137 mmol/L (136-145) Potassium Level 3.3 mmol/L (3.5-5.1) Chloride Level 101 mmol/L (98-107) Carbon Dioxide Level 27 mmol/L (21-32) Anion Gap 9 (6-14) Blood Urea Nitrogen 36 mg/dL (7-20) Creatinine 2.1 mg/dL (0.6-1.0) Estimated GFR (Cockcroft-Gault) 28.0 Glucose Level 128 mg/dL (70-99) Calcium Level 8.8 mg/dL (8.5-10.1) Glucose (Fingerstick) 147 mg/dL (70-99) Laboratory Tests Test 08/12/21 11:33 08/12/21 16:35 08/12/21 20:49 08/13/21 06:40 Glucose (Fingerstick) 228 mg/dL (70-99) 255 mg/dL (70-99) 156 mg/dL (70-99) White Blood Count 6.9 x10^3/uL (4.0-11.0) Red Blood Count 3.65 x10^6/uL (3.50-5.40) Hemoglobin 9.8 g/dL (12.0-15.5) Hematocrit 30.6 % (36.0-47.0) Mean Corpuscular Volume 84 fL (79-100) Mean Corpuscular Hemoglobin 27 pg (25-35) Mean Corpuscular Hemoglobin Concent 32 g/dL (31-37) Red Cell Distribution Width 14.0 % (11.5-14.5) Platelet Count 114 x10^3/uL (140-400) Neutrophils (%) (Auto) 71 % (31-73) Lymphocytes (%) (Auto) 20 % (24-48) Monocytes (%) (Auto) 8 % (0-9) Eosinophils (%) (Auto) 1 % (0-3) Basophils (%) (Auto) 0 % (0-3) Neutrophils # (Auto) 4.9 x10^3/uL (1.8-7.7) Lymphocytes # (Auto) 1.4 x10^3/uL (1.0-4.8) Monocytes # (Auto) 0.6 x10^3/uL (0.0-1.1) Eosinophils # (Auto) 0.0 x10^3/uL (0.0-0.7) Basophils # (Auto) 0.0 x10^3/uL (0.0-0.2) Sodium Level 137 mmol/L (136-145) Potassium Level 3.3 mmol/L (3.5-5.1) Chloride Level 101 mmol/L (98-107) Carbon Dioxide Level 27 mmol/L (21-32) Anion Gap 9 (6-14) Blood Urea Nitrogen 36 mg/dL (7-20) Creatinine 2.1 mg/dL (0.6-1.0) Estimated GFR (Cockcroft-Gault) 28.0 Glucose Level 128 mg/dL (70-99) Calcium Level 8.8 mg/dL (8.5-10.1) Test 08/13/21 07:58 Glucose (Fingerstick) 147 mg/dL (70-99) Medications Active Scripts Medications Dose Route/Sig Max Daily Dose Days Date Category Levemir (Insulin Detemir) 100 Unit/1 Ml Vial 25 Unit SQ DAILY 30 01/04/19 Rx Cholestyramine Light Packet (Cholestyramine/Aspartame) 4 Gm Powd.pack 4 Gm PO BID 09/01/18 Reported Gabapentin (Gabapentin) 300 Mg Capsule 300 Mg PO DAILY 05/07/17 Reported Latanoprost 2.5 Ml Drops 1 Drop EACHEYE QHS 05/07/17 Reported Omeprazole 40 Mg Capsule. 1 Cap PO DAILY 05/07/17 Reported Carvedilol 25 Mg Tablet 25 Mg PO BIDWMEALS 03/13/15 Reported Aspir-Low (Aspirin) 81 Mg Tablet. 81 Mg PO DAILY 04/06/13 Reported Norvasc (Amlodipine Besylate) 10 Mg Tablet 10 Mg PO DAILY 04/06/13 Reported Impression . 1. Acute hypoxic respiratory failure secondary to right lower lobe community-acquired pneumonia. Underlying obesity another contributing factor. 2. Abnormal chest x-ray consistent with right lower lobe pneumonia. 3. COVID negative and influenza negative. 4. Acute kidney injury. Question component of chronic kidney disease. Plan . Updated 08/13 Patient lost IV site Will global climate change analyst to oral Augmentin, and prednisone Discharge on 08/14 Follow-up in the office Repeat chest x-ray in 6 to 8 weeks RECOMMENDATIONS: 1. Continue present oxygen, keep saturation 92% and above. 2. Continue present antibiotics. 3. DuoNebs. 4. DVT prophylaxis with subcutaneous heparin. 5. We will follow chest x-ray in few days. If needed, we will order a CT chest. 6. Discussed with RN. CORINNE WRAY MD Aug 13, 2021 08:22
[2021-08-13] MEDS: ASPIRIN ENTERIC COATED 81 MG TABLET.DR. PO SCH (09:47)
[2021-08-13] MEDS: LACTOBACILLUS RHAMNOSUS GG 1 CAPSULE. PO SCH ×2 (09:47→20:54)
[2021-08-13] MEDS: DOXYCYCLINE HYCLATE 100 MG in IV DEXTROSE 5% 100ML 100 ML IV SCH (09:48)
[2021-08-13] MEDS: CHOLESTYRAMINE/ASPARTAME 4 GM PACKET PO SCH ×2 (10:43→22:34)
[2021-08-13 11:00] VITALS: BP 118/67
--- NOTE | 2021-08-13 12:45 | PDOC ---
[employer] PROGRESS NOTE Date of Service DOS: DATE: 08/13/21 TIME: 12:44 Chief Complaint Chief Complaint Acute respiratory failure with hypoxia -likely due to community-acquired pneumonia. No respiratory history. Will wean O2 as tolerated incentive spirometer nebulizers and Rocephin and doxycycline. Pulmonology was consulted by ED Right lower lobe pneumonia -likely community-acquired. Given comorbidities likely is gram-negative. Rocephin doxycycline. Anemia -possibly of chronic disease however will check iron and B12 levels Thrombocytopenia -likely due to infection will trend especially while on heparin Acute kidney injury -likely vasomotor nephropathy. May have some CKD 2 based on prior creatinine DM2 -A1c 8.1 as of 3 years ago. Basal bolus plus insulin HTN -continue home meds FEN - ADA diet PPX - heparin FULL CODE Dispo - inpatient History of Present Illness History of Present Illness 08/13 Patient evaluate examined at bedside. Resting in bed. Respiratory status improving. Switching to oral antibiotics today. Continue breathing treatments. Pulmonary recommendations reviewed. Agreeable to home health. Will order 6- minute walk for tomorrow morning. 08/12 Patient seen and examined at bedside. Resting in bed on 3 L nasal cannula said her breathing was improving but still feels somewhat short of breath. Pulmonary note reviewed. Continue current antibiotic selection. Discussed with bedside RN. Scheduled duo nebs continue. PT OT ordered. May need placement which she is agreeable to. Otherwise continue current. Vitals/I&O Vitals/I&O: Vital Signs Date Time Temp Pulse Resp B/P (MAP) Pulse Ox O2 Delivery O2 Flow Rate FiO2 08/13/21 11:40 96 Nasal Cannula 3.0 08/13/21 11:00 98.4 63 18 118/67 (84) 98.4 I & O 08/12/21 08/12/21 08/13/21 15:00 23:00 07:00 Intake Total 340 ml 360 ml Output Total 700 ml Balance 340 ml 360 ml -700 ml Physical Exam General: Alert, Oriented X3, Cooperative, mild distress Heart: Regular rate Lungs: Clear Abdomen: Normal bowel sounds, Soft, No tenderness, No hepatosplenomegaly, No masses Extremities: No clubbing, No cyanosis, No edema, Normal pulses, No tenderness/swelling Skin: No rashes, No breakdown, No significant lesion Labs Labs: Laboratory Tests Test 08/12/21 16:35 08/12/21 20:49 08/13/21 06:40 08/13/21 07:58 Glucose (Fingerstick) 255 mg/dL (70-99) 156 mg/dL (70-99) 147 mg/dL (70-99) White Blood Count 6.9 x10^3/uL (4.0-11.0) Red Blood Count 3.65 x10^6/uL (3.50-5.40) Hemoglobin 9.8 g/dL (12.0-15.5) Hematocrit 30.6 % (36.0-47.0) Mean Corpuscular Volume 84 fL (79-100) Mean Corpuscular Hemoglobin 27 pg (25-35) Mean Corpuscular Hemoglobin Concent 32 g/dL (31-37) Red Cell Distribution Width 14.0 % (11.5-14.5) Platelet Count 114 x10^3/uL (140-400) Neutrophils (%) (Auto) 71 % (31-73) Lymphocytes (%) (Auto) 20 % (24-48) Monocytes (%) (Auto) 8 % (0-9) Eosinophils (%) (Auto) 1 % (0-3) Basophils (%) (Auto) 0 % (0-3) Neutrophils # (Auto) 4.9 x10^3/uL (1.8-7.7) Lymphocytes # (Auto) 1.4 x10^3/uL (1.0-4.8) Monocytes # (Auto) 0.6 x10^3/uL (0.0-1.1) Eosinophils # (Auto) 0.0 x10^3/uL (0.0-0.7) Basophils # (Auto) 0.0 x10^3/uL (0.0-0.2) Sodium Level 137 mmol/L (136-145) Potassium Level 3.3 mmol/L (3.5-5.1) Chloride Level 101 mmol/L (98-107) Carbon Dioxide Level 27 mmol/L (21-32) Anion Gap 9 (6-14) Blood Urea Nitrogen 36 mg/dL (7-20) Creatinine 2.1 mg/dL (0.6-1.0) Estimated GFR (Cockcroft-Gault) 28.0 Glucose Level 128 mg/dL (70-99) Calcium Level 8.8 mg/dL (8.5-10.1) Test 08/13/21 11:38 Glucose (Fingerstick) 221 mg/dL (70-99) Assessment and Plan Assessmemt and Plan Problems Medical Problems: (1) Hyperglycemia Status: Acute (2) Hypoxia Status: Acute (3) Pneumonia Status: Acute Comment Review of Relevant I have reviewed the following items ciera (where applicable) has been applied. Medications: Current Medications Medications (Trade) Dose Ordered Sig/Reginaldo Route PRN Reason Start Time Stop Time Status Last Admin Dose Admin Lactobacillus Rhamnosus (Culturelle) 1 cap BID PO 08/12/21 21:00 08/13/21 09:47 Justifications for Admission Other Justification JESSI GILL MD Aug 13, 2021 12:45
[2021-08-13 15:00] VITALS: BP 122/58
[2021-08-13 19:00] VITALS: BP 119/67
[2021-08-13] MEDS: AMOXICILLIN/K CLAV 500/125MG TABLET. PO SCH (20:54)
[2021-08-13] MEDS: GABAPENTIN 300 MG CAPSULE. PO SCH (20:54)
[2021-08-13] MEDS: LATANOPROST 0.005% OPHTH SOLUTION 2.5ML BOTTLE. OU SCH (20:54)
[2021-08-13] MEDS: PSYLLIUM HUSK (SUGAR FREE) 1 PKT PACKET PO SCH (20:54)
[2021-08-13] MEDS: guaiFENesin DM 200MG/20MG 10 ML SYRUP PO PRN (20:58)
[2021-08-13] MEDS: INSULIN GLARGINE SYRINGE. SQ SCH (21:02)
[2021-08-13 23:00] VITALS: BP 117/59
[2021-08-14 03:00] VITALS: BP 139/43
[2021-08-14] MEDS: HEPARIN for SUB-Q USE 5,000 UNIT/ML VIAL. SQ SCH (06:15)
[2021-08-14 07:00] VITALS: BP 148/55
[2021-08-14] MEDS: PANTOPRAZOLE 40 MG TABLET.DR. PO SCH (07:25)
[2021-08-14] MEDS: INSULIN LISPRO 300 UNITS/3 ML VIAL. SQ SCH ×2 (07:30→11:48)
[2021-08-14] MEDS: IPRATRPIUM/ALBUTEROL 0.5/2.5MG 3 ML NEBU. NEB SCH ×2 (07:45→11:39)
[2021-08-14] MEDS: ASPIRIN ENTERIC COATED 81 MG TABLET.DR. PO SCH (08:17)
[2021-08-14] MEDS: AMOXICILLIN/K CLAV 500/125MG TABLET. PO SCH (08:18)
[2021-08-14] MEDS: LACTOBACILLUS RHAMNOSUS GG 1 CAPSULE. PO SCH (08:18)
[2021-08-14] MEDS: CARVEDILOL 12.5 MG TABLET. PO SCH (08:19)
--- NOTE | 2021-08-14 08:21 | PDOC ---
[facility] [facility] PROGRESS NOTE Date of Service DOS: DATE: 08/14/21 TIME: 08:18 Chief Complaint Chief Complaint Respiratory failure Community-acquired pneumonia Right lower lobe pneumonia Anemia Thrombocytopenia CHAITANYA Diabetes Hypertension History of Present Illness History of Present Illness 08/14/2021 Patient seen and examined She seems to be approaching her baseline other than requiring some low-dose ox ygen Discussed with RN Chart reviewed Will discharge on Augmentin and doxycycline p.o. if pulmonary agrees 08/13 Patient evaluate examined at bedside. Resting in bed. Respiratory status improving. Switching to oral antibiotics today. Continue breathing treatments. Pulmonary recommendations reviewed. Agreeable to home health. Will order 6- minute walk for tomorrow morning. 08/12 Patient seen and examined at bedside. Resting in bed on 3 L nasal cannula said her breathing was improving but still feels somewhat short of breath. Pulmonary note reviewed. Continue current antibiotic selection. Discussed with bedside RN. Scheduled duo nebs continue. PT OT ordered. May need placement which she is agreeable to. Otherwise continue current. Vitals/I&O Vitals/I&O: Vital Signs Date Time Temp Pulse Resp B/P (MAP) Pulse Ox O2 Delivery O2 Flow Rate FiO2 08/14/21 07:46 97 Nasal Cannula 3.0 08/14/21 07:00 98.4 68 12 148/55 (86) 98.4 I & O 08/13/21 08/13/21 08/14/21 15:00 23:00 07:00 Intake Total 360 ml 180 ml 300 ml Output Total 0 ml Balance 360 ml 180 ml 300 ml Physical Exam General: Alert, Oriented X3, Cooperative, mild distress Heart: Regular rate Lungs: Clear Abdomen: Normal bowel sounds, Soft, No tenderness, No hepatosplenomegaly, No masses Extremities: No clubbing, No cyanosis, No edema, Normal pulses, No tenderness/swelling Skin: No rashes, No breakdown, No significant lesion Labs Labs: Laboratory Tests Test 08/13/21 11:38 08/13/21 16:37 08/13/21 19:42 08/14/21 07:34 Glucose (Fingerstick) 221 mg/dL (70-99) 129 mg/dL (70-99) 152 mg/dL (70-99) 122 mg/dL (70-99) Assessment and Plan Assessmemt and Plan Problems Medical Problems: (1) Hyperglycemia Status: Acute (2) Hypoxia Status: Acut Respiratory failure Community-acquired pneumonia Right lower lobe pneumonia Anemia Thrombocytopenia CHAITANYA Diabetes Hypertension Plan Discharge later today on p.o. antibiotics For now continue to follow For pulm input Trying to titrate her off of O2 Home meds DVT prophylaxis Full code FEN - ADA diet PPX - heparin Dispo - inpatient Comment Review of Relevant I have reviewed the following items ciera (where applicable) has been applied. Medications: Current Medications Medications (Trade) Dose Ordered Sig/Reginaldo Route PRN Reason Start Time Stop Time Status Last Admin Dose Admin Amoxicillin/ Clavulanate Potassium (Augmentin 500/ 125mg) 1 tab BID PO 08/13/21 21:00 08/13/21 20:54 Justifications for Admission Other Justification GIANNI DUARTE III DO Aug 14, 2021 08:21
[2021-08-14 08:29] LABS: CALCIUM 8.8 mg/dL (8.5-10.1); CREATININE 2.1 mg/dL (0.6-1.0)
[2021-08-14] MEDS ORDERED: METH4TAB2 PO (08:29)
[2021-08-14] MEDS ORDERED: AMOX1TAB10 PO (08:29)
[2021-08-14] MEDS ORDERED: DOXY100C3 PO (08:29)
--- NOTE | 2021-08-14 08:30 | SNU/HH DC ---
DISCHARGE WITH HOME HEALTH DISCHARGE INFORMATION: Final Diagnosis: Problems Medical Problems: (1) Hyperglycemia Status: Acute (2) Hypoxia Status: Acute (3) Pneumonia Status: Acute Condition on Discharge: Stable CODE STATUS: Code Status: Full HOME HEALTH: Face to Face: I certify this patient is under my care and that I, or a nurse practitioner or physician's printing assistant working with me, had a face to face encounter that meets the physician face to face encounter requirements with this patient on []. Medical Complications: Pneumonia Senior Living For: Assess & Educate Safety RN For Eval/Treatment: Yes Physical Therapy For: Evalulation/Treatment Occupational Therapy For: Evaluation/Treatment Home Health Aide For: Self-care RECOVERY COORDINATOR For: Community Resources Pt Meets Homebound Status: Unsteady balance w/ amb, POST DISCHARGE ORDERS: Activity Instructions for Disc: Resume previous activity Weight Bearing Status after Di: No restrictions DIET AFTER DISCHARGE: Cardiac Wound/Incision Care: Ice to area for comfort, Keep wound/cast CDI CHECKS AFTER DISCHARGE: Checks after discharge: Check blood press - daily, Check blood sugar, ac/hs, Check your Temp as needed CERTIFICATION STATEMENT: Certification Statement: Certification Statement: Based on the above finding, I certify that this patient is confined to the home and needs intermittent mcfp care, physical therapy and/or speech therapy, or continues to need occupational therapy.~ This patient is under my care, and I have initiated the establishment of the plan of care.~ This patient will be followed by myself or a community physician who will periodically review the plan of care. Home Meds Active Scripts Doxycycline Hyclate (DOXYCYCLINE HYCLATE) 100 Mg Capsule, 1 CAP PO BID for ., #20 CAP Prov:CASTLE,NIAL K III DO 08/14/21 Methylprednisolone (MEDROL) 4 Mg Tab.ds.pk, 1 PKG PO UD for ., #1 PKG Prov:CASTLE,NIAL K III DO 08/14/21 Amoxicillin/Potassium Clav (AMOX TR-K CLV 500-125 MG TAB) 1 Each Tablet, 1 TAB PO BID for . for 10 Days, #20 TAB Prov:CASTLE,NIAL K III DO 08/14/21 Insulin Detemir (LEVEMIR) 100 Unit/1 Ml Vial, 25 UNIT SQ DAILY for dm2 for 30 Days, VIAL Prov:BONNIE GRAFF MD 9/10/19 Reported Medications Cholestyramine/Aspartame (CHOLESTYRAMINE LIGHT PACKET) 4 Gm Powd.pack, 4 GM PO BID for rx, PKT 09/01/18 Gabapentin (GABAPENTIN ) 300 Mg Capsule, 300 MG PO DAILY, CAP 05/07/17 Latanoprost (LATANOPROST) 2.5 Ml Drops, 1 DROP EACHEYE QHS, #7.5 ML 3 Refills 05/07/17 Omeprazole (OMEPRAZOLE) 40 Mg Capsule.dr, 1 CAP PO DAILY, #30 CAP 3 Refills 05/07/17 Carvedilol (CARVEDILOL) 25 Mg Tablet, 25 MG PO BIDWMEALS, TAB 03/13/15 Aspirin (ASPIR-LOW) 81 Mg Tablet.dr, 81 MG PO DAILY 04/06/13 Amlodipine Besylate (NORVASC) 10 Mg Tablet, 10 MG PO DAILY 04/06/13 GIANNI DUARTE III DO Aug 14, 2021 08:30
[2021-08-14 08:34] LABS: POTASSIUM 2.8 mmol/L (3.5-5.1)
[2021-08-14] MEDS ORDERED: predniSONE 10 MG TABLET PO SCH (09:00)
[2021-08-14] MEDS ORDERED: POTASSIUM CHLORIDE 20 MEQ TABLET.ER. PO ONE (09:30)
--- NOTE | 2021-08-14 09:56 | PDOC ---
PULMONARY PROGRESS NOTES DATE: 08/14/21 TIME: 09:56 Subjective Patient at times continues to cough less short of air feels better Vitals Vital Signs Date Time Temp Pulse Resp B/P (MAP) Pulse Ox O2 Delivery O2 Flow Rate FiO2 08/14/21 08:19 68 148/55 08/14/21 08:00 Nasal Cannula 3.0 08/14/21 07:46 97 08/14/21 07:00 98.4 12 98.4 ROS: No Nausea, No Chest Pain, No Abdominal Pain, No Increase Cough General: Alert, No acute distress Lungs: Clear Cardiovascular: S1, S2 Abdomen: Soft, Other (Obese) Neuro Exam: Alert Extremities: No Edema Skin: Warm Labs Laboratory Tests Test 08/12/21 11:33 08/12/21 16:35 08/12/21 20:49 08/13/21 06:40 Glucose (Fingerstick) 228 mg/dL (70-99) 255 mg/dL (70-99) 156 mg/dL (70-99) White Blood Count 6.9 x10^3/uL (4.0-11.0) Red Blood Count 3.65 x10^6/uL (3.50-5.40) Hemoglobin 9.8 g/dL (12.0-15.5) Hematocrit 30.6 % (36.0-47.0) Mean Corpuscular Volume 84 fL (79-100) Mean Corpuscular Hemoglobin 27 pg (25-35) Mean Corpuscular Hemoglobin Concent 32 g/dL (31-37) Red Cell Distribution Width 14.0 % (11.5-14.5) Platelet Count 114 x10^3/uL (140-400) Neutrophils (%) (Auto) 71 % (31-73) Lymphocytes (%) (Auto) 20 % (24-48) Monocytes (%) (Auto) 8 % (0-9) Eosinophils (%) (Auto) 1 % (0-3) Basophils (%) (Auto) 0 % (0-3) Neutrophils # (Auto) 4.9 x10^3/uL (1.8-7.7) Lymphocytes # (Auto) 1.4 x10^3/uL (1.0-4.8) Monocytes # (Auto) 0.6 x10^3/uL (0.0-1.1) Eosinophils # (Auto) 0.0 x10^3/uL (0.0-0.7) Basophils # (Auto) 0.0 x10^3/uL (0.0-0.2) Sodium Level 137 mmol/L (136-145) Potassium Level 3.3 mmol/L (3.5-5.1) Chloride Level 101 mmol/L (98-107) Carbon Dioxide Level 27 mmol/L (21-32) Anion Gap 9 (6-14) Blood Urea Nitrogen 36 mg/dL (7-20) Creatinine 2.1 mg/dL (0.6-1.0) Estimated GFR (Cockcroft-Gault) 28.0 Glucose Level 128 mg/dL (70-99) Calcium Level 8.8 mg/dL (8.5-10.1) Test 08/13/21 07:58 08/13/21 11:38 08/13/21 16:37 08/13/21 19:42 Glucose (Fingerstick) 147 mg/dL (70-99) 221 mg/dL (70-99) 129 mg/dL (70-99) 152 mg/dL (70-99) Test 08/14/21 07:05 08/14/21 07:34 Sodium Level 137 mmol/L (136-145) Potassium Level 2.8 mmol/L (3.5-5.1) Chloride Level 102 mmol/L (98-107) Carbon Dioxide Level 27 mmol/L (21-32) Anion Gap 8 (6-14) Blood Urea Nitrogen 42 mg/dL (7-20) Creatinine 2.1 mg/dL (0.6-1.0) Estimated GFR (Cockcroft-Gault) 28.0 Glucose Level 125 mg/dL (70-99) Calcium Level 8.8 mg/dL (8.5-10.1) Glucose (Fingerstick) 122 mg/dL (70-99) Laboratory Tests Test 08/13/21 11:38 08/13/21 16:37 08/13/21 19:42 08/14/21 07:05 Glucose (Fingerstick) 221 mg/dL (70-99) 129 mg/dL (70-99) 152 mg/dL (70-99) Sodium Level 137 mmol/L (136-145) Potassium Level 2.8 mmol/L (3.5-5.1) Chloride Level 102 mmol/L (98-107) Carbon Dioxide Level 27 mmol/L (21-32) Anion Gap 8 (6-14) Blood Urea Nitrogen 42 mg/dL (7-20) Creatinine 2.1 mg/dL (0.6-1.0) Estimated GFR (Cockcroft-Gault) 28.0 Glucose Level 125 mg/dL (70-99) Calcium Level 8.8 mg/dL (8.5-10.1) Test 08/14/21 07:34 Glucose (Fingerstick) 122 mg/dL (70-99) Medications Active Scripts Medications Dose Route/Sig Max Daily Dose Days Date Category Levemir (Insulin Detemir) 100 Unit/1 Ml Vial 25 Unit SQ DAILY 30 01/04/19 Rx Cholestyramine Light Packet (Cholestyramine/Aspartame) 4 Gm Powd.pack 4 Gm PO BID 09/01/18 Reported Gabapentin (Gabapentin) 300 Mg Capsule 300 Mg PO DAILY 05/07/17 Reported Latanoprost 2.5 Ml Drops 1 Drop EACHEYE QHS 05/07/17 Reported Omeprazole 40 Mg Capsule. 1 Cap PO DAILY 05/07/17 Reported Carvedilol 25 Mg Tablet 25 Mg PO BIDWMEALS 03/13/15 Reported Aspir-Low (Aspirin) 81 Mg Tablet. 81 Mg PO DAILY 04/06/13 Reported Norvasc (Amlodipine Besylate) 10 Mg Tablet 10 Mg PO DAILY 04/06/13 Reported Impression . 1. Acute hypoxic respiratory failure secondary to right lower lobe community-acquired pneumonia. Underlying obesity another contributing factor. 2. Abnormal chest x-ray consistent with right lower lobe pneumonia. 3. COVID negative and influenza negative. 4. Acute kidney injury. Question component of chronic kidney disease. Plan . Updated 08/14 Gave patient a follow-up appointment with me in the office Okay to discharge Augmentin, prednisone taper Repeat chest x-ray in 6 to 8 weeks RECOMMENDATIONS: 1. Continue present oxygen, keep saturation 92% and above. 2. Continue present antibiotics. 3. DuoNebs. 4. DVT prophylaxis with subcutaneous heparin. 5. We will follow chest x-ray in few days. If needed, we will order a CT chest. 6. Discussed with HINA. CORINNE WRAY MD Aug 14, 2021 09:56
[2021-08-14] MEDS: CHOLESTYRAMINE/ASPARTAME 4 GM PACKET PO SCH (09:57)
--- NOTE | 2021-08-14 10:57 | NUR ---
SS following for discharge planning. SS reviewed pt chart and discussed with pt RN. Pt is from home and is currently on room air. Six minute walk completed and no oxygen needed. COVID19 negative. PT/OT recommended home with home healthcare. SS met with pt and discussed discharge planning and home healthcare services. Pt agreeable to home healthcare and reported that she had no preference of company. Referral sent to [facility], ; fax [phone], and pt accepted on services. Pt's RN notified.
[2021-08-14 11:00] VITALS: BP 104/64
--- NOTE | 2021-08-15 11:45 | DS ---
DATE OF DISCHARGE: 08/14/2021 ADMITTING DIAGNOSES: 1. Community-acquired pneumonia with respiratory failure. 2. Anemia. 3. Thrombocytopenia. 4. Acute kidney injury. 5. Diabetes. 6. Hypertension. DISCHARGE DIAGNOSIS: Resolving pneumonia. CONSULTS: Pulmonary Medicine. PROCEDURES: None. HOSPITAL COURSE: The patient is a pleasant middle-aged female who presented with pneumonia. We admitted her, gave her IV antibiotics, breathing treatments, oxygen and consulted Pulmonary Medicine. Over the next few days, she slowly returned to her baseline. Yesterday, I saw and examined her. She was doing well. We discharged to home. DISPOSITION: Home. ACTIVITY: As tolerated. DIET: Low sodium. DISCHARGE MEDICATIONS: Please see the MRAD. Augmentin 500 b.i.d., doxycycline 100 b.i.d., steroid taper, amlodipine 10 a day, aspirin 81 a day, carvedilol 25 b.i.d., Questran packet b.i.d., gabapentin 300 daily, insulin 25 units of Levemir daily, latanoprost eyedrops, omeprazole 40 a day. Total time 33 minutes. [facility] [place] DR: Moraima TID: [id number]
== END 2021-08-14 13:09 | disposition home health service (06) | DRG 177 ==
LOC: ER 16:34 → 5 NORTH 18:22
PROVIDERS: ADMIT Internal Medicine; ATTEND Internal Medicine
DX: J15.6 Pneumonia due to other Gram-negative bacteria (principal); J96.01 Acute respiratory failure with hypoxia; N17.0 Acute kidney failure with tubular necrosis; I13.0 Hypertensive heart and chronic kidney disease with heart failure and stage 1 through stage 4 chronic kidney disease, or unspecified chronic kidney disease; D64.9 Anemia, unspecified; D69.6 Thrombocytopenia, unspecified; E11.22 Type 2 diabetes mellitus with diabetic chronic kidney disease; E11.42 Type 2 diabetes mellitus with diabetic polyneuropathy; E11.65 Type 2 diabetes mellitus with hyperglycemia; E66.9 Obesity, unspecified; E78.5 Hyperlipidemia, unspecified; I50.9 Heart failure, unspecified; N18.2 Chronic kidney disease, stage 2 (mild); Z20.822 Contact with and (suspected) exposure to COVID-19; Z82.49 Family history of ischemic heart disease and other diseases of the circulatory system; Z83.3 Family history of diabetes mellitus; G62.9 Polyneuropathy, unspecified
CPT/HCPCS: 36415; 36600; 71045; 80048; 80053; 82010; 82805; 82962; 83605; 83735; 85025; 87040; 87428; 93005; 94618; 94640; 94760; 96361; 96365; 96375; J0456; J0696; J1644; J1815; J2405; J3490; J7030; J7040; J7050; J7060; J7512; 97110-GP; 97116-GP; 97530-GO; 97530-GP; 97535-GO; 99285-25; G0378